=== PATIENT | female | born 1955 | race Caucasian/White ===

== ENCOUNTER 2022-09-14 13:35 | Inpatient (IN) | payer OTHER, MEDICARE, SELFPAY ==
[2022-09-14 13:36] VITALS: BP 116/54; PULSE 72; RESP 16; TEMP 36.3; O2SAT 100; BMI 35.4
--- NOTE | 2022-09-14 13:37 | RAD_ITS ---
STUDY: X-RAY - PELVIS AND LEFT HIP REASON FOR EXAM: Female, 67 years old. Injury/Pain TECHNIQUE: Frontal and lateral views of the pelvis and hip. COMPARISON: None. FINDINGS: There is a normal bowel gas pattern. Normal visualized soft tissue structures. Normal bilateral iliac wings, sacroiliac joints and visualized sacrum. Normal bilateral superior and inferior pubic rami. Normal pubic symphysis. Normal bilateral ischial tuberosities. Normal visualized femoral head. There is acute intertrochanteric fracture of the left proximal femur with displacement of 0.4 cm. Normal acetabulum. Normal hip joint. RAD/HIP, UNI W/ Pelvis 2-3 Views IMPRESSION: Left femoral neck fracture. Electronically Signed: Hammad Tilley MD at 14:23 EDT ,
--- NOTE | 2022-09-14 13:38 | ED.VIS.LOWEX ---
HPI History of Present Illness Chief Complaint: Lower Extremity Injury Detail of Chief Complaint: Left hip pain after fall Informant: patient and EMS Occured/Mechanism Mechanism/Context: Yes injury and Yes fall Comment: Patient fell off of wagon. She informed the paramedics she believes she dislocated her hip Onset/Context/Timing Onset: Hours (20 minutes prior to arrival) Context: Sudden Onset Timing: Continuous Quality of Pain: Dull and Aching Location: Left hip Current Severity: Mild Maximum Severity: Severe Worsened by: Any event Relieved by: Minimal if patient remains still Narrative Narrative: Patient is a 67-year-old woman with history of psychiatric disorder on no antithrombotic or anticoagulant who fell off of a wagon. She was found with her left hip in flexion and slightly internally rotated. She has no prior history of hip problems or hip surgery. She denies paresthesia, anesthesia or motor weakness. She denies head trauma. She denies loss of conscious. She denies neck or back pain. She denies pain to her upper or lower extremities. Patient has significant reaction to morphine and codeine. Patient has not had anything to eat since this morning. She had something to drink approximately 1 hour ago. Tetanus Immunization: >10 years Prior similar symptoms: No Recent Illness/Hospitalization: No PFSH PFSH Medical History Arthritis Bipolar 1 disorder GERD (gastroesophageal reflux disease) Insomnia Home Medications alprazolam 0.5 mg tablet 0.5 mg PO DAILY PRN Anxiety 09/14/22 [History Last Taken Unknown] amoxicillin 500 mg capsule 500 mg PO TID Check with primary doctor 09/14/22 [History Last Taken Unknown] bupropion HCl 150 mg 24 hr tablet, extended release 150 mg PO DAILY 09/14/22 [History Last Taken Unknown] eszopiclone 3 mg tablet 3 mg PO QHS PRN Insomnia 09/14/22 [History Last Taken Unknown] famotidine 20 mg tablet 20 mg PO DAILY 09/14/22 [History Last Taken Unknown] meloxicam 15 mg tablet 15 mg PO DAILY 09/14/22 [History Last Taken Unknown] olanzapine 10 mg tablet 10 mg PO DAILY 09/14/22 [History Last Taken Unknown] sertraline 100 mg tablet 200 mg PO DAILY 09/14/22 [History Last Taken Unknown] Allergy/AdvReac Type Severity Reaction Status Date / Time ciprofloxacin [From Cipro] Allergy Hives Verified 09/14/22 13:40 hydrocodone [From [place]] Allergy Hives Verified 09/14/22 13:40 morphine Allergy Hives Verified 09/14/22 13:40 Family History (Updated 09/14/22 @ 15:[address] Nidhi Camacho DO) Mother Renal cell carcinoma Father Small cell lung cancer Other Diabetes Heart disease Hypertension Surgical History (Updated 09/14/22 @ 15:[address] Nidhi Camacho DO) H/O cardiac radiofrequency ablation History of dental surgery Social History (Updated 09/14/22 @ 15:[address] 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 Denies dental trauma. ; Denies ear pain or sore throat Cardiovascular Cardiovascular: Denies chest pain or palpitations Respiratory/Chest Respiratory/Chest: Denies cough, dyspnea or dyspnea on exertion Gastrointestinal Gastrointestinal: Denies abdominal pain, nausea or vomiting Genitourinary Genitourinary ED: Denies dysuria, hematuria or urinary frequency Musculoskeletal Musculoskeletal: Reports other Details: Left hip pain ; Denies arthralgias, back pain, myalgias or neck pain Integumentary Denies rash Neurologic Neurologic: Denies paresthesias or weakness Hematologic/Lymphatic Hematologic/Lymphatic: Denies easy bleeding or easy bruising EXAM Physical Exam Const Vital Signs: 09/14/22 13:36 Temperature 97.3 F L Temperature Source Temporal Pulse Rate 72 Respiratory Rate 16 Blood Pressure 116/54 L Blood Pressure Mean 74 Pulse Ox 100 Oxygen Delivery Method Room Air Positive well nourished, well developed and obese Constitutional Narrative: Patient appears uncomfortable but not in obvious distress. General Appearance ED: well developed Nutritional Appearance: obese HEENT Reports moist mucous membranes normocephalic and atraumatic Eyes PERRL Eyes Narrative: Extract muscle intact. Sclera is anicteric. There is no subconjunctival hemorrhage noted. Neck full ROM and supple Resp normal respiratory effort, no retractions and clear to auscultation bilaterally Cardio regular rate, regular rhythm, S1 normal heart sound, S2 normal heart sound and no murmurs GI non-tender, non-distended and no masses Auscultation: hypoactive bowel sounds Palpation: soft Back/Spine no CVA tenderness Extremity Negative for normal to inspection or full ROM Extremity Narrative: Patient hip is in flexion and left lower extremity is internally rotated. General Extremety ED: Yes weight-bearing difficulty; Negative for cyanosis or edema General Extremity: weight-bearing difficulty; Negative for cyanosis or edema Neuro oriented x3, CN's II-XII intact bilaterally and moves all extremities Neuro Narrative: Patient is able to wiggle her toes and plantar and dorsiflex at the ankle. DP pulses palpable. There is no tenderness of the toes, foot, ankle or knee on the left side. Sensorium / Orientation: alert Motor Exam: strength 5/5 throughout Skin no wounds Lesions: no lesions Rashes: no rashes MDM MDM MDM Narrative Medical decision making narrative: Clinically patient has a left hip dislocation. X-ray was obtained to evaluate for fracture dislocation versus dislocation. Based on her allergies she was medicated with fentanyl IV push. Patient was made NPO. X-ray was ordered. Review of prior records indicates patient has no contraindication to sedation and no history of cardiac disease or pulmonary disease. History & Record Review Additional record(s) reviewed:: Prior outpatient record Radiography Chest X-Ray - ED: Read by ED Physician (Three-view x-ray of the left hip reveals a nondisplaced femoral neck fracture. The trabeculae. I believe this is a Pierce type III. Dr. Oropeza who is on-call for orthopedics will be in to see patient.) Diagnostic Testing: Clinical Impression(s) from Imaging Studies Hip/Pelvis X-Ray 09/14/22 13:37 IMPRESSION: Left femoral neck fracture. Electronically Signed: Hammad Tilley MD at 14:23 EDT , At the time of disposition and admission for the chest x-ray that was ordered has not been performed. This will need to be followed by the hospitalist and or orthopedist. Rhythm Strip Rhythm Strip: Sinus Rhythm (88) Rate: 75 Ectopy: None EKG Initial EKG: Attestation: I personally reviewed and interpreted this EKG as follows: Interpretation: Sinus Rhythm (Rate is 82. GA interval is under 50 ms. Cures duration 80 ms. QT duration 386 ms. [place] is normal. Pewter is reading artifact as nonspecific ST-T wave abnormality.) Discharge Plan Dx/Rx/DC Orders Clinical Impression: Fracture of femoral neck, left, closed Disposition Disposition: Acute Care Hospital [facility]
[2022-09-14] MEDS: fentaNYL 100 MCG/2 ML Ampul 50 MCG IV (13:49)
--- NOTE | 2022-09-14 14:43 | EKG12_ITS ---
Test Reason : PRE OP Blood Pressure : / mmHG Vent. Rate : 082 BPM Atrial Rate : 082 BPM P-R Int : 150 ms QRS Dur : 080 ms QT Int : 386 ms P-R-T Axes : 064 -12 077 degrees QTc Int : 450 ms Normal sinus rhythm Nonspecific ST and T wave abnormality Abnormal ECG Confirmed by VINNIE SEGAL, CALI ([id number]), scientific publications editor CUAUHTEMOC NAVARRO ([id number]) on 09/17/2022 10:28:36 AM Referred By: Confirmed By:CALI BIRMINGHAM MD
--- NOTE | 2022-09-14 14:56 | PCM.HP.STD ---
HPI - General General Date of Admission: 09/14/22 Date of Service: 09/14/22 Chief Complaint: Left hip pain status post fall HPI Narrative YAMILET LOPEZ, is a 67 F who presented to the emergency department at [facility] on 09/14/2022. Patient resides in [place] and was here locally for festival. She likes to knit and they were selling yarn. She was stepping out of one of the trailers and the steps were unlevel and she fell having immediate left hip pain and deformity following. She was brought to the emergency department where she was found to have a left femoral neck fracture. Her past medical history is fairly unremarkable. She did recently have dental surgery for which she is taking antibiotics. Labs are currently pending. Preop EKG and chest x-rays are pending. The emergency department contacted Dr. Hanley and he is on his way to evaluate her further and decide on a surgical plan. She will be admitted to [facility] for ongoing care. [facility] Medical History Arthritis Bipolar 1 disorder GERD (gastroesophageal reflux disease) Insomnia Home Medications alprazolam 0.5 mg tablet 0.5 mg PO DAILY PRN Anxiety 09/14/22 [History Last Taken Unknown] bupropion HCl 150 mg 24 hr tablet, extended release 150 mg PO DAILY 09/14/22 [History Last Taken Unknown] eszopiclone 3 mg tablet 3 mg PO QHS PRN Insomnia 09/14/22 [History Last Taken Unknown] famotidine 20 mg tablet 20 mg PO DAILY 09/14/22 [History Last Taken Unknown] meloxicam 15 mg tablet 15 mg PO DAILY 09/14/22 [History Last Taken Unknown] olanzapine 10 mg tablet 10 mg PO DAILY 09/14/22 [History Last Taken Unknown] sertraline 100 mg tablet 200 mg PO DAILY 09/14/22 [History Last Taken Unknown] Allergy/AdvReac Type Severity Reaction Status Date / Time ciprofloxacin [From Cipro] Allergy Hives Verified 09/14/22 13:40 hydrocodone [From [place]] Allergy Hives Verified 09/14/22 13:40 morphine Allergy Hives Verified 09/14/22 13:40 Family History (Updated 09/14/22 @ 15:[address] Nidhi Camacho DO) Mother Renal cell carcinoma Father Small cell lung cancer Other Diabetes Heart disease Hypertension Surgical History (Updated 09/14/22 @ 15:[address] Nidhi Camacho DO) H/O cardiac radiofrequency ablation History of dental surgery Social History (Updated 09/14/22 @ 15:[address] 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 Smoking Status: Never smoker alcohol intake: current alcohol intake frequency: holidays/special occasions only substance use type: does not use ROS Constitutional Constitutional: Denies anorexia, change in weight, chills, fatigue, fever(s), malaise, night sweats, weakness or other Eyes Eyes: Denies blurry vision, change in eye color, change in vision, discharge from eye(s), double vision, erythema, eye pain, loss of vision or other ENT HEENT: Denies abnormal hearing, dysphagia, ear pain, epistaxis, headache(s), hearing loss, nasal congestion, nasal discharge, post nasal drip, sinus pressure, sore throat or other Cardiovascular Cardiovascular: Denies chest pain, claudication, dyspnea on exertion, edema, lightheadedness, orthopnea, palpitations, paroxysmal nocturnal dyspnea, rapid heart rate, syncope or other Respiratory/Chest Respiratory/Chest: Denies cough, dyspnea, excessive phlegm production, hemoptysis, productive cough, shortness of breath at rest, shortness of breath with exertion, wheezing or other Gastrointestinal Gastrointestinal: Denies abdominal pain, coffee ground emesis, constipation, diarrhea, dyspepsia, hematemesis, hematochezia, loose stools, melena, nausea, vomiting or other Genitourinary Genitourinary: Denies burning urination, difficulty urinating, dysuria, hematuria, nocturia, urinary frequency, urinary hesitancy, urinary incontinence, urinary urgency or other Musculoskeletal Musculoskeletal: Reports arthralgias, joint pain, joint stiffness, joint swelling and other Details: Inability to move left leg due to pain ; Denies back pain, myalgias or neck pain Neurologic Neurologic: Denies abnormal gait, abnormal speech, confusion, disequilibrium, dizziness, focal weakness, headache(s), numbness, paresthesias, seizure-like activity, seizures, syncope, tingling, tremor(s) or other Psychiatric Psychiatric: Reports other Details: History of bipolar disorder Hematologic/Lymphatic Hematologic/Lymphatic: Denies anemia, easy bleeding, easy bruising, lymphadenopathy or other Allergic/Immunologic Allergic/Immunologic: Denies rhinitis, hives, eczemia, asthma or other Vital Signs Vital Signs Vital Signs: 09/14/22 13:36 Temperature 97.3 F L Temperature Source Temporal Pulse Rate 72 Respiratory Rate 16 Blood Pressure 116/54 L Blood Pressure Mean 74 Pulse Ox 100 Oxygen Delivery Method Room Air Weight Weight: 99.5 kg Body Mass Index (BMI) 35.4 Physical Exam Const alert, oriented x3 and well nourished Constitutional Narrative: Obese, very pleasant, upper middle-aged, white female, lying in bed, appears uncomfortable due to pain in her leg, nontoxic appearing, at bedside General Appearance: cooperative HEENT normocephalic, head/scalp atraumatic, hearing grossly normal bilaterally and moist oral mucous membranes HEENT Narrative: Mandible with notable surgical changes and sutures in place with no drainage or signs of infection Resp normal respiratory effort, no retractions, no use of accessory muscles and clear to auscultation bilaterally Auscultation: Negative for rales, rhonchi or wheezes Cardio regular rate, regular rhythm, S1 normal heart sound, S2 normal heart sound, no murmurs, no rub, no gallops and no clicks GI normal to inspection, nondistended, normoactive bowel sounds, soft to palpation and non-tender Extremity no clubbing, cyanosis or edema Extremity Narrative: Left lower extremity is propped up slightly at the ankle and patient is guarding significantly due to pain, pedal pulses are 2+ Neuro oriented x3, CN's II-XII intact bilaterally and no focal motor deficits Neuro Narrative: Decreased movement left lower extremity secondary to pain in the left hip but no focal deficits noted Speech: speech normal Psych affect normal Psych Narrative: Very pleasant, appropriately interactive Results Rhythm Strip Rhythm Strip: Sinus Rhythm (88) Ectopy: None Radiology Impression Hip/Pelvis X-Ray 09/14/22 13:37 IMPRESSION: Left femoral neck fracture. Electronically Signed: Hammad Tilley MD at 14:23 EDT , Assessment & Plan Assessment/Plan (1) Fracture of femoral neck, left: PLAN: Plan Left femoral neck fracture -Orthopedic surgery consulted and coming into evaluate patient -Cardiac clearance pending with EKG and chest x-ray pending -Patient should overall be low risk for surgery as she has no cardiac history other than history of A-fib status post ablation and no history of pulmonary disease -Admit to medical floor -Scheduled Tylenol 1000 mg every 8 -As needed muscle relaxants with tizanidine every 8 -As needed oxycodone -Patient states she has taken this previously without any reaction -Benadryl ordered if she develops itching or hives -Bedrest until surgical repair is performed -PT/OT consultation after surgical intervention Recent dental surgery -We will continue home antibiotics as previously prescribed -Recommend previously scheduled outpatient follow-up History of GERD -Continue home medication once verified History of atrial fibrillation -Remote -Underwent cardiac ablation at least 10 years ago with no cardiac issues since that point time -EKG is pending however on auscultation rate is within normal limits and regular Bipolar disorder -Continue home medications Obesity -BMI 35.4 -Complicates treatment, prognosis, outcomes Recommend weight loss DVT prophylaxis -Lovenox subcu 40 mill grams daily -SCDs for suspected interruption and Lovenox therapy perioperatively CODE STATUS Full code Charges/Coding Visit Charges Inpatient E&M: 86120 Init Hosp L2
--- NOTE | 2022-09-14 15:26 | CON.PCM.OR_ITS ---
HPI Consult Data Date of Consult: 09/14/22 HPI Narrative HPI Narrative: YAMILET LOPEZ, is a 67 F who presents left hip # NOF. [place] Tri[place] stairs, no SOB or CP. no prior hip pain. no other injuries or pain. no head injury or LOC. [facility] Medical History Arthritis Bipolar 1 disorder GERD (gastroesophageal reflux disease) Insomnia Home Medications alprazolam 0.5 mg tablet 0.5 mg PO DAILY PRN Anxiety 09/14/22 [History Last Taken Unknown] bupropion HCl 150 mg 24 hr tablet, extended release 150 mg PO DAILY 09/14/22 [History Last Taken Unknown] eszopiclone 3 mg tablet 3 mg PO QHS PRN Insomnia 09/14/22 [History Last Taken Unknown] famotidine 20 mg tablet 20 mg PO DAILY 09/14/22 [History Last Taken Unknown] meloxicam 15 mg tablet 15 mg PO DAILY 09/14/22 [History Last Taken Unknown] olanzapine 10 mg tablet 10 mg PO DAILY 09/14/22 [History Last Taken Unknown] sertraline 100 mg tablet 200 mg PO DAILY 09/14/22 [History Last Taken Unknown] Allergy/AdvReac Type Severity Reaction Status Date / Time ciprofloxacin [From Cipro] Allergy Hives Verified 09/14/22 13:40 hydrocodone [From [place]] Allergy Hives Verified 09/14/22 13:40 morphine Allergy Hives Verified 09/14/22 13:40 Family History (Updated 09/14/22 @ 15:[address] Nidhi Camacho DO) Mother Renal cell carcinoma Father Small cell lung cancer Other Diabetes Heart disease Hypertension Surgical History (Updated 09/14/22 @ 15:[address] Nidhi Camacho DO) H/O cardiac radiofrequency ablation History of dental surgery Social History (Updated 09/14/22 @ 15:[address] 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 Smoking Status: Never smoker alcohol intake: current alcohol intake frequency: holidays/special occasions only substance use type: does not use Vital Signs Vital Signs Vital Signs: 09/14/22 13:36 Temperature 97.3 F L Temperature Source Temporal Pulse Rate 72 Respiratory Rate 16 Blood Pressure 116/54 L Blood Pressure Mean 74 Pulse Ox 100 Oxygen Delivery Method Room Air Weight Weight: 219 lb 5.759 oz Body Mass Index (BMI) 35.4 Physical Exam Const alert, oriented x3, no apparent distress and well nourished General Appearance: cooperative HEENT normocephalic Resp normal respiratory effort Effort and Inspection: able to speak in complete sentences Cardio regular rate Extremity normal capillary refill and no calf tenderness Extremity Narrative: Left LE closed NVI. normal sensation to dorsum and plantar foot, strong DP pulse, foot warm well perfused, wiggles toes and ankle, no pain at knee, left hip propped on blankets. Lab / Micro Data Labs: Laboratory Results - last 24 hr 09/14/22 14:55: Blood Type Cancelled, Antibody Screen Cancelled Rhythm Strip Rhythm Strip: Sinus Rhythm (88) Rate: 75 Ectopy: None Radiology Impression Hip/Pelvis X-Ray 09/14/22 13:37 IMPRESSION: Left femoral neck fracture. Electronically Signed: Hammad Tilley MD at 14:23 EDT , displaced nof garden 3. no OA. Assessment & Plan Assessment/Plan (1) Fracture of femoral neck, left: PLAN: 67 F with a left displaced femoral neck fracture. Generally indicated for either hemiarthroplasty or total hip my preference for hemiarthroplasty. Different approaches possible for this as well as cemented versus uncemented. Generally my preference here for DA approach and cemented but controversial. I discussed the pros and cons risks and benefits of nonoperative versus operative means of treating this. Patient wishes to proceed with operative management. High risk of nonoperative treatment with debility bedrest and high risk of thromboembolism complications. Marked left lower extremity and consent obtained for the surgery left hip hemiarthroplasty as well as possible need for blood products. Patient will be GENEVA for now n.p.o. at midnight admitted under the hospitalist service and cleared for likely tomorrow morning surgery. House sup ervisor as well as anesthesia aware. Pros and cons risks and benefits were discussed with the patient including but not limited to infection, pain, stiffness, bleeding, damage to surrounding structures, neurovascular injury, recurrence or retear, failure or wear of hardware or fixation, instability, fracture, deep vein thrombosis and pulmonary embolism, anesthetic risks, , patient dissatisfaction, need for further surgery and other risks. Patient understood and wished to proceed with surgery, and signed the informed consent documentation.
[2022-09-14] MEDS: HYDROmorphone 0.5 MG/0.5 ML SYRINGE IV (15:33)
[2022-09-14] MEDS: DiphenhydrAMINE 50 MG/ML Syringe 25 MG IV (15:34)
[2022-09-14 15:37] VITALS: BP 117/58; PULSE 85; RESP 16; TEMP 36.6; O2SAT 99
[2022-09-14 15:53] LABS: International Normalized Ratio 1.1; Prothrombin Time (Protime)PT. 14.2 SECONDS (11.7-14.9)
[2022-09-14 15:54] LABS: Partial Thromboplast Time 28.2 Seconds (24.1-36.2)
--- NOTE | 2022-09-14 16:05 | RAD_ITS ---
STUDY: XR Chest 1 View 09/14/2022 4:05 PM REASON FOR EXAM: Female, 67 years old. Preop COMPARISON: None TECHNIQUE: XR Chest 1 View FINDINGS: There is no demonstrated pleural abnormality. Normal heart size. Normal mediastinum. Normal minda. Prominent appearing increased interstitial lung markings. Normal visualized pulmonary arteries. There is atherosclerotic calcification of the aortic arch with tortuosity. There are diffuse degenerative changes of the visualized thoracic spine. There is degenerative osteoarthritis of the bilateral shoulders. There is no demonstrated abnormality of the visualized soft tissue structures of the upper abdomen. RAD/Chest 1 View (Portable) IMPRESSION: There are no acute findings. Electronically Signed: Vinod Arguelles MD at 17:18 EDT ,
[2022-09-14 16:16] LABS: ALB/GLOB Ratio 0.8 RATIO (0.9-2.4); AST(SGOT) 20 U/L (15-37); Alanine Aminotransfer ALT/SGPT 16 U/L (13-56); Albumin, Serum 3.2 g/dL (3.2-5.0); Alkaline Phosphatase 106 U/L (45-117); Anion Gap 4 (5-15); BUN 16 mg/dL (7-18); BUN/Creat Ratio 14.7 RATIO (10-20); Calcium,Total 8.8 mg/dL (8.5-10.1); Chloride 108 mmol/L (98-107); Creatinine, Serum 1.09 mg/dL (0.55-1.02); EST Glomerular Filtration Rate 53 mL/min (>60); Est Glom Filt Rate - Afr Amer 65 mL/min (>60); Estimated Creatinine Clearance 47.53 ml/min; Globulin 4.1 g/dL (2.2-4.2); Glucose 115 mg/dL (74-106); Potassium 4.6 mmol/L (3.5-5.1); Protein, Total 7.3 g/dL (6.4-8.2); Sodium Level 140 mmol/L (136-145)
[2022-09-14 17:27] VITALS: BMI 35.2
[2022-09-14 17:32] VITALS: BP 126/93; PULSE 89; RESP 18; TEMP 36.6; O2SAT 95
[2022-09-14] MEDS: oxyCODONE 5 MG Tablet PO ×2 (17:55→21:25)
[2022-09-14 20:40] VITALS: O2SAT 98
[2022-09-14] MEDS: Acetaminophen 500 MG Tablet 1000 MG PO (21:23)
[2022-09-14] MEDS: Ondansetron 4 MG/2 ML Vial IV (21:23)
[2022-09-14] MEDS: MELATONIN 3 MG TABLET PO (21:25)
[2022-09-14] MEDS: 0.9% Saline Lock 10 ML Syringe IV (21:25)
[2022-09-14 21:33] VITALS: BP 129/60; PULSE 86; RESP 18; TEMP 36.8; O2SAT 92
[2022-09-15] VITALS (13 sets, daily range): BP systolic 101–129; BP diastolic 47–74; PULSE 66–100; RESP 12–18; TEMP 36.2–37.1; O2SAT 90–99; BMI 35.2
[2022-09-15 06:28] LABS: Absolute Lymphocyte Count 1.66 X10^3/uL (0.83-4.51); Absolute Neutrophil Count 3.5 X10^3/uL (2.0-7.7); Basophil# 0.04 X10^3/uL; Basophil% 0.7 % (0-1); Eosinophil# 0.21 X10^3/uL; Eosinophils% 3.6 % (0-5); Hematocrit 29.1 % (37-47); Hemoglobin 8.1 g/dL (12.0-15.0); Lymphocyte # 1.66 X10^3/ul (0.83-4.51); Lymphocyte % 28.6 % (19-41); Mean Corp Hgb Conc 27.8 g/dL (32-36); Mean Corpuscular Hgb 21.7 pg (27.0-32.0); Mean Platelet Vol. 9.9 fl (6.2-12.0); Monocyte% 6.9 % (0-10); NRBC Flagged by Analyzer 0 % (0-5); Neutrophil # 3.48 X10^3/uL (2.7-7.7); Neutrophil % 59.9 % (47-70); Platelet Count 264 K/mm3 (150-450); RBC Distribution Width CV 18.2 % (11.6-14.6); RBC Distribution Width SD 51.2 fl (35.1-43.9); Red Blood Count 3.73 M/mm3 (4.2-5.4); White Blood Count 5.8 K/mm3 (4.4-11.0)
[2022-09-15 07:16] LABS: BUN 16 mg/dL (7-18); Calcium,Total 8.4 mg/dL (8.5-10.1); Creatinine, Serum 1.07 mg/dL (0.55-1.02); EST Glomerular Filtration Rate 55 mL/min (>60); Est Glom Filt Rate - Afr Amer 66 mL/min (>60); Estimated Creatinine Clearance 44.66 ml/min; Glucose 106 mg/dL (74-106); Phosphorus 3.3 mg/dL (2.5-4.9); Sodium Level 138 mmol/L (136-145)
[2022-09-15 07:17] LABS: Anion Gap 6 (5-15); Chloride 106 mmol/L (98-107)
[2022-09-15 07:28] LABS: Ferritin 8 ng/mL (8-252); Iron 38 ug/dL (50-170); Iron Binding Capacity,Total 343 ug/dL (250-450); PERCENT IRON SATURATION 11.1 % (15.0-55.0)
--- NOTE | 2022-09-15 07:41 | RAD_ITS ---
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 TECHNIQUE: 2 spot images. COMPARISON: XR 09/14/2022. FINDINGS: OSSEOUS STRUCTURES: Placement of left hip arthroplasty. FLUOROSCOPY TIME/RADIATION DOSE: Information not provided. RAD/Hip Min 2 Views (Portable) IMPRESSION: Image guidance for left hip arthroplasty. Please refer to operative note. Electronically Signed: Virgen Mares MD at 13:02 EDT ,
--- NOTE | 2022-09-15 07:41 | NURSING ---
Er called as missing signed consent for surgery pt and Dr. Hanley states signed while in ER, they tubed the consent form, sent to OR.
[2022-09-15] MEDS: Cefazolin 2 GM in 0.9% Normal Saline 100 ML IV (07:48)
--- NOTE | 2022-09-15 07:49 | PCM.PN.ORT ---
Subjective Subjective OK to proceed, left hip gege arthroplasty Objective Data Objective Data Vital Signs: Vital Signs Temp Pulse Resp BP Pulse Ox O2 Del Method 98.2 F 66 18 113/61 92 Room Air 09/15/22 03:33 09/15/22 03:33 09/15/22 03:33 09/15/22 03:33 09/15/22 03:33 09/15/22 03:33 Oxygen Delivery Method Room Air Weight: 205 lb 7.533 oz Body Mass Index (BMI) 35.2 Intake & Output: Intake and Output for Last 24 Hours 09/13/22 09/14/22 09/15/22 23:59 23:59 23:59 Intake Total 240 / 640 400 / 400 Output Total 450 / 450 Balance 240 / 640 -50 / -50 Lab / Micro Data Result Diagrams: 09/15/22 05:55 09/15/22 05:55 Labs: Laboratory Results - last 24 hr 09/14/22 14:50: Sodium 140, Potassium 4.6, Chloride 108 H, Carbon Dioxide 28.0, Anion Gap 4 L, BUN 16, Creatinine 1.09 H, Estim Creat Clear Calc 47.53, Est GFR (MDRD) Af Amer 65, Est GFR (MDRD) Non-Af 53 L, BUN/Creatinine Ratio 14.7, Glucose 115 H, Calcium 8.8, Total Bilirubin 0.20, AST 20, ALT 16, Alkaline Phosphatase 106, Total Protein 7.3, Albumin 3.2, Globulin 4.1, Albumin/Globulin Ratio 0.8 L 09/14/22 14:55: Blood Type Cancelled, Antibody Screen Cancelled 09/14/22 15:25: PT 14.2, INR 1.1, APTT 28.2 09/14/22 15:25: Blood Type A POSITIVE, Antibody Screen NEGATIVE 09/15/22 05:55: WBC 5.8, RBC 3.73 L, Hgb 8.1 L, Hct 29.1 L, MCV 78.0 L, MCH 21.7 L, MCHC 27.8 L, RDW Std Deviation 51.2 H, RDW Coeff of Nurys 18.2 H, Plt Count 264, MPV 9.9, Immature Gran % (Auto) 0.300, Neut % (Auto) 59.9, Lymph % (Auto) 28.6, [place] % (Auto) 6.9, Eos % (Auto) 3.6, Baso % (Auto) 0.7, Absolute Neuts (auto) 3.5, Absolute Lymphs (auto) 1.66, Nucleated RBC % 0 09/15/22 05:55: Sodium 138, Potassium 4.0, Chloride 106, Carbon Dioxide 26.0, Anion Gap 6, BUN 16, Creatinine 1.07 H, Estim Creat Clear Calc 44.66, Est GFR (MDRD) Af Amer 66, Est GFR (MDRD) Non-Af 55 L, BUN/Creatinine Ratio 15.0, Glucose 106, Calcium 8.4 L, Phosphorus 3.3, Magnesium 2.0, TSH 8.90 H 09/15/22 05:55: Iron 38 L, TIBC 343, Iron Saturation 11.1 L, Ferritin 8 Radiography Diagnostic Testing: Radiology Impression Hip/Pelvis X-Ray 09/14/22 13:37 IMPRESSION: Left femoral neck fracture. Electronically Signed: Hammad Tilley MD at 14:23 EDT , Chest X-Ray 09/14/22 16:05 IMPRESSION: There are no acute findings. Electronically Signed: Vinod Arguelles MD at 17:18 EDT , Rhythm Strip Rhythm Strip: Sinus Rhythm (88) Rate: 75 Ectopy: None Assessment & Plan Assessment/Plan (1) Fracture of femoral neck, left: PLAN: 67 F plan for left hip gege arthroplasty, no further questions. Dr. May to proceed with spinal.
--- NOTE | 2022-09-15 08:08 | NURSING ---
pt off unit for surgery
--- NOTE | 2022-09-15 08:20 | FEM_PTH ---
PATIENT: YAMILET LOPEZ LOC: MS3 U#:[id number] AGE/SX: 67/F ROOM: MD310 RE09/14/[address]: Dr. Mikie Marcos MD : 1955 BED: 1 DIS: 09/18/2022 SPEC #: [id number] RECD: 09/17/22 08:36 STATUS: CAR REQ #: [id number] EDITH: 09/15/22 08:[address]: Michael Hanley DEPT: SURGICAL PATHOLOGY RECD BY: Emily Gamez ENTERED: 09/17/22 09:12 SP TYPE: FEM HEAD OTHR DR: DO Dr. Michael Mullen MD No Primary Care Phys Tissues: Femoral region, NOS Procedures: Decalcification bone/plaque Surgery Specimen Level V Comments: @ Ordering doctor for DEC edited from to @ by TYLOR at 09/17/22 1314 @ Ordering doctor for SUV edited from to @ by TYLOR at 09/17/22 1314 @ Submitting doctor edited from to @ by TYLOR at 09/17/22 1314 HEADER OPERATION: Left hip hemiarthroplasty PRE-OP DIAGNOSIS: Fracture of left femoral neck TISSUE SUBMITTED: Left hip bone and tissue MICROSCOPIC DIAGNOSIS Bone and tissue of left hip, total hip resection: Consistent with organizing fracture callus. SHAILESH:olga 09/20/2022 MICROSCOPIC DESCRIPTION Slides are reviewed. GROSS DESCRIPTION Received is one container labeled with the patient's name and designated left hip bone and tissue. The specimen consists of a steiner femoral head measuring 4.5 x 4.5 x 2.5 cm. A portion of femoral neck measures 3.0 cm in length. The articular surface is smooth and with knife noel. Resection margin is irregular and hemorrhagic. Also present in the specimen container are multiple detached pieces of bone measuring in aggregate 6.0 x 4.5 x 2.0 cm. No soft tissue is identified. Food General Manager sections are submitted in three cassettes after decalcification as follows: 1 & 2 - detached pieces of tissue, 3 - femoral head. / SHENG:olga 09/17/2022 TC:5 CPT: 88133, 00639
[2022-09-15] MEDS: Bupivacaine 0.25% 30 ML Vial OPERA.SITE (11:01)
--- NOTE | 2022-09-15 11:09 | PCM.OPRPT ---
Problems Associated Problem List Diagnoses (1) Fracture of femoral neck, left: Report of Operation Date of Procedure: 09/15/22 Pre-Operative Diagnosis: L hip femoral neck fracture Post-Operative Diagnosis: same Surgery/Procedure Performed:: Left hip cemented hemiarthroplasty DA approach Surgeon: Michael Hanley Type of Anesthesia: General, Local and Spinal Anesthesiologist: Yoel May Estimated Blood Loss (mL): 100 Description of Procedure: Patient brought to room theater. Placed supine on the table. Spinal anesthesia induced eventually converted to general anesthetic. Bump under the left hip. All bony prominences padded. Left anterior aspect of the hip prepped and draped with chlorhexidine-based prep solution lying over 3 minutes drying time prior to draping. 2 g IV Ancef ministered prior to start of the case. Preoperative timeout performed confirming site patient surgery. Began by making a 10 cm incision directly anterior to the left hip 2 cm distal and 2 cm lateral to the ASIS. Carried dissection down through skin and subcutaneous tissue achieved meticulous hemostasis. Incised the fascia overlying the tensor fascia zach just lateral to the interval. Then used blunt dissection to sweep the muscle belly laterally. Incised the subsheath of the tensor fascia zach to protect the lateral femoral cutaneous nerve. Cauterize crossing vessels circumflex of the femoral artery. Developed the interval between the reflected head of the rectus as well as the hip abductors gluteus medius. Placed retractors at the neck. Made a T-shaped capsulotomy eventually that I had to convert to a capsulectomy to gain better releases and an approach to the hip. Used the corkscrew device to remove the head. Head sized to 45 mm. Dissected down to the medial aspect of the neck to the lesser trochanter. Fracture was low just above the lesser trochanter so I used rongeurs to clean up the neck cut. Used a box osteotome to lateralize. Hip was fully extended use of bone hook as well as the elevating instruments. Sequentially broached up to a size 4, a size 5 was slightly too big distally. Trialed and took radiographs to ensure appropriate length and stability in internal and external rotation as well as extension and flexion normal shuck test normal leg lengths comparing side to side at the knees. Prepared the canal with brushes and suction devices as well as Irrisept irrigation solution. Suction mixed and prepared using third-generation preparation techniques. Distal cement restrictor placed at an appropriate level as well as the centralizer at the femoral component which I selected a size 4 Accolade Kieran. Cement was allowed to set slightly, canal pressurized with cement,m patient stable throughout, component inserted in appropriate version. Then trialed once the cement was set using size 45 mm head 0 offset slightly too short and then +4 mm offset was appropriate again using intraoperative radiographs compared side to side. Trials were removed and final component impacted into place after the trunnion thoroughly cleaned and any cement removed as well as the acetabulum thoroughly irrigated. Hip stable and reduced final pictures taken and saved onto the system. Wound thoroughly irrigated interval closed with #1 Vicryl suture followed by subcutaneous tissue 2-0 Vicryl and skin with 3-0 Monocryl. 10 cc 0.25% percent bupivacaine instilled in around soft tissues followed by cleaning the skin with wet dry dressing Steri-Strips and silver Mepilex border dressing. Drapes removed patient woken up from under general anesthetic transferred off the operating table and taken to postanesthetic care unit in stable condition. All sponge needle Mr. Counts were correct no complications. Plan to the patient made under the hospitalist service Xarelto 10 mg p.o. once daily starting postoperative day 1 and a precaution 6 weeks weightbearing as tolerated. Grafts/Implants Used: kieran accolade, size 4, 45mm head, +4 offset, Complications none Admit VTE Documentation VTE Present on Admission: No VTE Mechan Device Prophylaxis: SCD's VTE Pharm Prophylaxis ordered?: Yes Procedures Musculoskeletal 20xxx-29xxx: Other Procedure See Report
--- NOTE | 2022-09-15 12:56 | PCM.PN.HOSP ---
Reason for Visit Reason for Visit: Mechanical fall/left hip pain Subjective Subjective Surgery done this morning. Patient seen postoperatively. Patient reports she is feeling crappy right now. Complains of being cold. No significant pain. Objective Data Objective Data Vital Signs: Vital Signs Temp Pulse Resp BP Pulse Ox O2 Del Method O2 Flow Rate 97.8 F 85 18 124/69 H 93 Nasal Cannula 2 09/15/22 12:15 09/15/22 12:15 09/15/22 12:15 09/15/22 12:15 09/15/22 12:15 09/15/22 12:15 09/15/22 12:15 Oxygen Flow Rate (L/min) 2 Oxygen Delivery Method Nasal Cannula Weight: 93.2 kg Body Mass Index (BMI) 35.2 Intake & Output: Intake and Output for Last 24 Hours 09/13/22 09/14/22 09/15/22 23:59 23:59 23:59 Intake Total 240 / 640 510 / 510 Output Total 800 / 800 Balance 240 / 640 -290 / -290 Lab / Micro Data Result Diagrams: 09/15/22 05:55 09/15/22 05:55 Labs: Laboratory Results - last 24 hr 09/14/22 14:50: Sodium 140, Potassium 4.6, Chloride 108 H, Carbon Dioxide 28.0, Anion Gap 4 L, BUN 16, Creatinine 1.09 H, Estim Creat Clear Calc 47.53, Est GFR (MDRD) Af Amer 65, Est GFR (MDRD) Non-Af 53 L, BUN/Creatinine Ratio 14.7, Glucose 115 H, Calcium 8.8, Total Bilirubin 0.20, AST 20, ALT 16, Alkaline Phosphatase 106, Total Protein 7.3, Albumin 3.2, Globulin 4.1, Albumin/Globulin Ratio 0.8 L 09/14/22 14:55: Blood Type Cancelled, Antibody Screen Cancelled 09/14/22 15:25: PT 14.2, INR 1.1, APTT 28.2 09/14/22 15:25: Blood Type A POSITIVE, Antibody Screen NEGATIVE 09/15/22 05:55: WBC 5.8, RBC 3.73 L, Hgb 8.1 L, Hct 29.1 L, MCV 78.0 L, MCH 21.7 L, MCHC 27.8 L, RDW Std Deviation 51.2 H, RDW Coeff of Nurys 18.2 H, Plt Count 264, MPV 9.9, Immature Gran % (Auto) 0.300, Neut % (Auto) 59.9, Lymph % (Auto) 28.6, [place] % (Auto) 6.9, Eos % (Auto) 3.6, Baso % (Auto) 0.7, Absolute Neuts (auto) 3.5, Absolute Lymphs (auto) 1.66, Nucleated RBC % 0 09/15/22 05:55: Sodium 138, Potassium 4.0, Chloride 106, Carbon Dioxide 26.0, Anion Gap 6, BUN 16, Creatinine 1.07 H, Estim Creat Clear Calc 44.66, Est GFR (MDRD) Af Amer 66, Est GFR (MDRD) Non-Af 55 L, BUN/Creatinine Ratio 15.0, Glucose 106, Calcium 8.4 L, Phosphorus 3.3, Magnesium 2.0, TSH 8.90 H 09/15/22 05:55: Iron 38 L, TIBC 343, Iron Saturation 11.1 L, Ferritin 8 Radiography Diagnostic Testing: Radiology Impression Hip/Pelvis X-Ray 09/14/22 13:37 IMPRESSION: Left femoral neck fracture. Electronically Signed: Hammad Tilley MD at 14:23 EDT , Chest X-Ray 09/14/22 16:05 IMPRESSION: There are no acute findings. Electronically Signed: Vinod Arguelles MD at 17:18 EDT , Rhythm Strip Rhythm Strip: Sinus Rhythm (88) Rate: 75 Ectopy: None Physical Exam Const alert, oriented x3 and well nourished Constitutional Narrative: Obese, very pleasant, upper middle-aged, white female, lying in bed, sleepy as she was seen postoperatively however appears more comfortable than she did yesterday, nontoxic appearing, at bedside General Appearance: cooperative HEENT normocephalic, head/scalp atraumatic, hearing grossly normal bilaterally and moist oral mucous membranes Resp normal respiratory effort, no retractions, no use of accessory muscles and clear to auscultation bilaterally Auscultation: Negative for rales, rhonchi or wheezes Cardio regular rate, regular rhythm, S1 normal heart sound, S2 normal heart sound, no murmurs, no rub, no gallops and no clicks GI normal to inspection, nondistended, normoactive bowel sounds, soft to palpation and non-tender Extremity no clubbing, cyanosis or edema Extremity Narrative: KASHMIR hose on bilateral lower extremities, polar ice in place, pedal pulses are 2+, cap refill is good Neuro oriented x3 and no focal motor deficits Speech: speech normal Psych affect normal Psych Narrative: Very pleasant, appropriately interactive Assessment & Plan Assessment/Plan (1) Fracture of femoral neck, left: PLAN: Plan Left femoral neck fracture -Postop day 0 left cemented hemiarthroplasty -Continue scheduled Tylenol 1000 mg every 8 -Continue as needed muscle relaxants with tizanidine every 8 -Continue as needed oxycodone -Weightbearing as tolerated -PT/OT consultation consultation in place -Await orthopedic surgery recommendations for long-term DVT prophylaxis after discharge Recent dental surgery -We will continue home antibiotics as previously prescribed -Recommend previously scheduled outpatient follow-up History of chronic anemia -Appears iron deficient -Will give 1 dose of IV iron and start oral iron History of celiac's disease -No current issues -Gluten-free diet History of GERD -Continue home medication once verified History of atrial fibrillation -Remote -Underwent cardiac ablation at least 10 years ago with no cardiac issues since that point time -EKG is pending however on auscultation rate is within normal limits and regular Bipolar disorder -Continue home medications Obesity -BMI 35.4 -Complicates treatment, prognosis, outcomes -Recommend weight loss DVT prophylaxis -Lovenox subcu 40 mill grams daily -SCDs for suspected interruption and Lovenox therapy perioperatively CODE STATUS Full code Charges/Coding Visit Charges Inpatient E&M: 81372 Subs Hosp L2
--- NOTE | 2022-09-15 13:04 | NURSING ---
spoke w/ Dianelys in Rx after 2 nd call-she will send IV iron now to be given
[2022-09-15] MEDS: AMOXICILLIN 500 MG CAPSULE PO ×2 (13:34→21:43)
[2022-09-15] MEDS: Acetaminophen 500 MG Tablet 1000 MG PO ×2 (13:35→21:43)
[2022-09-15] MEDS: buPROPion (XL) 150 MG TABLET.XL PO (13:36)
[2022-09-15] MEDS: Famotidine 20 MG Tablet PO (13:36)
[2022-09-15] MEDS: oxyCODONE 5 MG Tablet PO (17:23)
[2022-09-15] MEDS: Ferrous Sulfate 325 MG Tablet PO (17:23)
[2022-09-15] MEDS: Ondansetron 4 MG/2 ML Vial IV (20:03)
[2022-09-15] MEDS: Senna/Docusate Sodium 1 Tablet 2 TABLET PO (20:03)
[2022-09-15] MEDS: OLANZapine 10 MG Tablet PO (21:42)
[2022-09-15] MEDS: Polyethylene Glycol 3350 17 GM PACKET PO (21:42)
[2022-09-15] MEDS: Meloxicam 15 MG Tablet PO (21:43)
[2022-09-15] MEDS: Sertraline 100 MG Tablet 200 MG PO (21:43)
[2022-09-15] MEDS: Zolpidem Tartrate 5 MG Tablet PO (21:43)
--- NOTE | 2022-09-15 23:36 | NURSING ---
pts bed exit going off. staff responded immediately and pt was found laying on the floor on operative L Hip/side. pt states i was having diarrhea because of my history of IBS and i was trying to go to the bathroom. pt A&Ox3. push pulls equal BUE and BLE. denies dizziness or hitting head. denies N/T. new bruise noted around L hip incision site. drsg D&I. denies pain assisted off floor and onto BSC x4 assist to finish having BM. hygiene provided from incont of stool. bed linens changed. Talon notified at [phone]. repeat hip xray ordered. post fall protocol followed.
[2022-09-16] VITALS (8 sets, daily range): BP systolic 112–139; BP diastolic 46–60; PULSE 84–92; RESP 16–18; TEMP 36.4–37.1; O2SAT 93–100
--- NOTE | 2022-09-16 00:15 | RAD_ITS ---
EXAM: XR Hip Unilateral with Pelvis when performed; 2-3 Views INDICATION: Female, 67 years old. Recent left hip surgery. Left hip pain status post fall TECHNIQUE: AP and lateral views COMPARISON: None FINDINGS: BONES: There is postoperative change from left hip bipolar hemiarthroplasty. Components are normal alignment. There is no periarticular instrumentation lucency. There is no acute fracture. No lytic or blastic lesion. The sacrum, bilateral iliac wings, pubic rami initial tuberosities are intact.. Visualized lower lumbar spine is unremarkable. JOINTS: The right hip is in normal alignment with mild degenerative change. Bilateral sacroiliac joints are unremarkable. SOFT TISSUES: No soft tissue abnormality. RAD/HIP, UNI W/ Pelvis 2-3 Views IMPRESSION: Postoperative change from left hip bipolar hemiarthroplasty with no evidence of instrumentation failure and no acute abnormality of the pelvis Electronically Signed: Todd Steele MD at 1:20 EDT ,
--- NOTE | 2022-09-16 03:26 | NURSING ---
pt requesting to not call and notify him of pts fall. pt will tell him when he comes later this morning otherwise he will just worry. pt is A&Ox3 at this time
[2022-09-16 05:56] LABS: Absolute Lymphocyte Count 0.91 X10^3/uL (0.83-4.51); Absolute Neutrophil Count 9.4 X10^3/uL (2.0-7.7); Basophil# 0.03 X10^3/uL; Basophil% 0.3 % (0-1); Eosinophil# 0.02 X10^3/uL; Eosinophils% 0.2 % (0-5); Lymphocyte # 0.91 X10^3/ul (0.83-4.51); Lymphocyte % 8.3 % (19-41); Mean Corpuscular Hgb 21.7 pg (27.0-32.0); Mean Corpuscular Volume 77.6 fL (81-99); Mean Platelet Vol. 9.6 fl (6.2-12.0); Monocyte# 0.54 X10^3/uL; Monocyte% 4.9 % (0-10); NRBC Flagged by Analyzer 0 % (0-5); Neutrophil # 9.35 X10^3/uL (2.7-7.7); Neutrophil % 85.8 % (47-70); Platelet Count 211 K/mm3 (150-450); RBC Distribution Width CV 18.1 % (11.6-14.6); RBC Distribution Width SD 50.4 fl (35.1-43.9); Red Blood Count 3.22 M/mm3 (4.2-5.4); White Blood Count 10.9 K/mm3 (4.4-11.0)
[2022-09-16] MEDS: AMOXICILLIN 500 MG CAPSULE PO ×3 (06:09→21:28)
[2022-09-16] MEDS: Acetaminophen 500 MG Tablet 1000 MG PO ×3 (06:09→21:28)
[2022-09-16 06:38] LABS: Anion Gap 4 (5-15); BUN 21 mg/dL (7-18); BUN/Creat Ratio 19.3 RATIO (10-20); Calcium,Total 7.9 mg/dL (8.5-10.1); Chloride 105 mmol/L (98-107); Creatinine, Serum 1.09 mg/dL (0.55-1.02); EST Glomerular Filtration Rate 53 mL/min (>60); Est Glom Filt Rate - Afr Amer 65 mL/min (>60); Estimated Creatinine Clearance 43.84 ml/min; Glucose 131 mg/dL (74-106); Potassium 4.3 mmol/L (3.5-5.1); Sodium Level 136 mmol/L (136-145)
[2022-09-16] MEDS: Enoxaparin 40 MG/0.4 ML Syringe SC (08:57)
[2022-09-16] MEDS: buPROPion (XL) 150 MG TABLET.XL PO (08:57)
[2022-09-16] MEDS: Famotidine 20 MG Tablet PO (08:58)
--- NOTE | 2022-09-16 09:28 | PN.ORTHO_ITS ---
Subjective Subjective Feeling well. Had a fall but getting up and around. Hip feels ok. thinks I did a great job Objective Data Objective Data POD 1 L hip gege Vital Signs: Vital Signs Temp Pulse Resp BP Pulse Ox O2 Del Method O2 Flow Rate 97.5 F L 88 18 112/60 94 Room Air 2 09/16/22 03:14 09/16/22 03:14 09/16/22 03:14 09/16/22 03:14 09/16/22 09:18 09/16/22 09:19 09/16/22 03:14 Oxygen Flow Rate (L/min) 2 Oxygen Delivery Method Room Air Weight: 205 lb 7.533 oz Body Mass Index (BMI) 35.2 Intake & Output: Intake and Output for Last 24 Hours 09/14/22 09/15/22 09/16/22 23:59 23:59 23:59 Intake Total 240 / 640 1267 / 1267 Output Total 1450 / 1450 350 / 350 Balance 240 / 640 -183 / -183 -350 / -350 Lab / Micro Data Attestation: I reviewed the patient's lab results. Result Diagrams: 09/16/22 05:41 09/16/22 05:41 Labs: Laboratory Results - last 24 hr 09/14/22 15:25: Crossmatch See Detail 09/16/22 05:41: WBC 10.9, RBC 3.22 L, Hgb 7.0 L, Hct 25.0 L, MCV 77.6 L, MCH 21.7 L, MCHC 28.0 L, RDW Std Deviation 50.4 H, RDW Coeff of Nurys 18.1 H, Plt C ount 211, MPV 9.6, Immature Gran % (Auto) 0.500, Neut % (Auto) 85.8 H, Lymph % (Auto) 8.3 L, [place] % (Auto) 4.9, Eos % (Auto) 0.2, Baso % (Auto) 0.3, Absolute Neuts (auto) 9.4 H, Absolute Lymphs (auto) 0.91, Nucleated RBC % 0 09/16/22 05:41: Sodium 136, Potassium 4.3, Chloride 105, Carbon Dioxide 27.0, Anion Gap 4 L, BUN 21 H, Creatinine 1.09 H, Estim Creat Clear Calc 43.84, Est GFR (MDRD) Af Amer 65, Est GFR (MDRD) Non-Af 53 L, BUN/Creatinine Ratio 19.3, Glucose 131 H, Calcium 7.9 L Micro: Microbiology 09/16/22 05:56 Stool Stool Occult Blood (ALIZA) - Final Occult Blood Positive Radiography Diagnostic Testing: Radiology Impression Hip X-Ray 09/15/22 07:41 IMPRESSION: Image guidance for left hip arthroplasty. Please refer to operative note. Electronically Signed: Virgen Mares MD at 13:02 EDT , Hip/Pelvis X-Ray 09/16/22 00:15 IMPRESSION: Postoperative change from left hip bipolar hemiarthroplasty with no evidence of instrumentation failure and no acute abnormality of the pelvis Electronically Signed: Todd Steele MD at 1:20 EDT , Rhythm Strip Rhythm Strip: Sinus Rhythm (88) Rate: 75 Ectopy: None Physical Exam Const alert, oriented x3 and no apparent distress Extremity normal capillary refill Extremity Narrative: drsg dry, intact, sitting upright in chair and getting around with one assist and walker, nvi, normal sens and motor function to foot, strong DP pulse. Assessment & Plan Assessment/Plan (1) Fracture of femoral neck, left: PLAN: 67 F POD 1 L hip gege for NOF fracture. Would suggest xarelto 10 mg po OD starting this evening if hospitalist in agreement. 30 days post op. Continue WBAT.
[2022-09-16] MEDS: Ferrous Sulfate 325 MG Tablet PO ×2 (11:06→17:51)
--- NOTE | 2022-09-16 11:50 | EX.PCM.CON.G ---
HPI Consult Data Date of Consult: 09/16/22 HPI Narrative Reason for Consultation: GI bleed HPI Narrative: YAMILET LOPEZ, is a 67-year-old woman with history of psychiatric disorder on no antithrombotic or anticoagulant who fell off of a wagon.? She was found with her left hip in flexion and slightly internally rotated. She was determined to have a?left displaced femoral neck fracture. She underwent successful surgery and was noted on anticoagulation after the procedure. She does meloxicam as needed for pain. She also takes famotidine for mild GERD symptoms. I was called to evaluate her after she started having a decreased in hemoglobin. She is on enoxaparin for DVT prophylaxis. [facility] Medical History Arthritis Bipolar 1 disorder GERD (gastroesophageal reflux disease) Insomnia Home Medications alprazolam 0.5 mg tablet 0.5 mg PO DAILY PRN Anxiety 09/14/22 [History Last Taken Unknown] amoxicillin 500 mg capsule 500 mg PO TID Check with primary doctor 09/14/22 [History Last Taken 09/14/22 0800] bupropion HCl 150 mg 24 hr tablet, extended release 150 mg PO DAILY 09/14/22 [History Last Taken Unknown] eszopiclone 3 mg tablet 3 mg PO QHS PRN Insomnia 09/14/22 [History Last Taken Unknown] famotidine 20 mg tablet 20 mg PO DAILY 09/14/22 [History Last Taken Unknown] meloxicam 15 mg tablet 15 mg PO QHS pain 09/14/22 [History Last Taken Unknown] olanzapine 10 mg tablet 10 mg PO QHS bipolar 09/14/22 [History Last Taken Unknown] sertraline 100 mg tablet 200 mg PO QHS bipolar 09/14/22 [History Last Taken Unknown] Allergy/AdvReac Type Severity Reaction Status Date / Time ciprofloxacin [From Cipro] Allergy Hives Verified 09/14/22 13:40 hydrocodone [From [place]] Allergy Hives Verified 09/14/22 13:40 morphine Allergy Hives Verified 09/14/22 13:40 Family History (Updated 09/14/22 @ 15:[address] Nidhi Camacho DO) Mother Renal cell carcinoma Father Small cell lung cancer Other Diabetes Heart disease Hypertension Surgical History (Updated 09/14/22 @ 15:[address] Nidhi Camacho DO) H/O cardiac radiofrequency ablation History of dental surgery Social History (Updated 09/14/22 @ 15:[address] 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 Smoking Status: Never smoker alcohol intake: current alcohol intake frequency: holidays/special occasions only substance use type: does not use ROS Constitutional Constitutional: Denies anorexia, change in weight, chills, fatigue, fever(s), malaise, night sweats, weakness or other Eyes Eyes: Denies blurry vision, change in eye color, change in vision, discharge from eye(s), double vision, erythema, eye pain, loss of vision or other ENT HEENT: Denies abnormal hearing, dysphagia, ear pain, epistaxis, headache(s), hearing loss, nasal congestion, nasal discharge, post nasal drip, sinus pressure, sore throat or other Cardiovascular Cardiovascular: Denies chest pain, claudication, dyspnea on exertion, edema, lightheadedness, orthopnea, palpitations, paroxysmal nocturnal dyspnea, rapid heart rate, syncope or other Respiratory/Chest Respiratory/Chest: Denies cough, dyspnea, excessive phlegm production, hemoptysis, productive cough, shortness of breath at rest, shortness of breath with exertion, wheezing or other Gastrointestinal Gastrointestinal: Denies abdominal pain, coffee ground emesis, constipation, diarrhea, dyspepsia, hematemesis, hematochezia, loose stools, melena, nausea, vomiting or other Genitourinary Genitourinary: Denies burning urination, difficulty urinating, dysuria, hematuria, nocturia, urinary frequency, urinary hesitancy, urinary incontinence, urinary urgency or other Musculoskeletal Musculoskeletal: Reports arthralgias, joint pain, joint stiffness, joint swelling and other Details: Inability to move left leg due to pain ; Denies back pain, myalgias or neck pain Neurologic Neurologic: Denies abnormal gait, abnormal speech, confusion, disequilibrium, dizziness, focal weakness, headache(s), numbness, paresthesias, seizure-like activity, seizures, syncope, tingling, tremor(s) or other Psychiatric Psychiatric: Reports other Details: History of bipolar disorder Hematologic/Lymphatic Hematologic/Lymphatic: Denies anemia, easy bleeding, easy bruising, lymphadenopathy or other Allergic/Immunologic Allergic/Immunologic: Denies rhinitis, hives, eczemia, asthma or other Physical Exam Const alert, oriented x3, no apparent distress and well nourished Constitutional Narrative: Obese, upper middle-aged, white female, lying in bed, appears comfortable at this time, nontoxic General Appearance: cooperative HEENT normocephalic, head/scalp atraumatic, hearing grossly normal bilaterally and moist oral mucous membranes HEENT Narrative: Previous surgical intervention on lower jaw noted, Mallampati 2-3, no thrush Resp normal respiratory effort, no retractions, no use of accessory muscles and clear to auscultation bilaterally Auscultation: Negative for rales, rhonchi or wheezes Cardio regular rate, regular rhythm, S1 normal heart sound, S2 normal heart sound, no murmurs, no rub, no gallops and no clicks GI normal to inspection, nondistended, normoactive bowel sounds, soft to palpation and non-tender Extremity no clubbing, cyanosis or edema Extremity Narrative: Left hip with very minimal swelling and resolving ecchymosis at surgical site, dressing is peeling off a bit with no drainage noted-discussed with nursing Neuro oriented x3 and no focal motor deficits Speech: speech normal Psych affect normal Psych Narrative: Pleasant Lab / Micro Data Result Diagrams: 09/17/22 05:17 09/17/22 05:17 Labs: Laboratory Results - last 24 hr 09/14/22 15:25: Crossmatch See Detail 09/14/22 15:25: Crossmatch See Detail 09/17/22 05:17: WBC 11.7 H, RBC 3.05 L, Hgb 7.0 L, Hct 23.2 L, MCV 76.1 L, MCH 23.0 L, MCHC 30.2 L D, RDW Std Deviation 48.1 H, RDW Coeff of Nurys 17.9 H, Plt Count 210, MPV 10.5, Immature Gran % (Auto) 0.800, Neut % (Auto) 78.5 H, Lymph % (Auto) 13.1 L, [place] % (Auto) 5.8, Eos % (Auto) 1.5, Baso % (Auto) 0.3, Absolute Neuts (auto) 9.1 H, Absolute Lymphs (auto) 1.53, Nucleated RBC % 0 09/17/22 05:17: Sodium 138, Potassium 3.7, Chloride 107, Carbon Dioxide 25.0, Anion Gap 6, BUN 28 H, Creatinine 1.16 H, Estim Creat Clear Calc 41.20, Est GFR (MDRD) Af Amer 60, Est GFR (MDRD) Non-Af 50 L, BUN/Creatinine Ratio 24.1 H, Glucose 107 H, Calcium 8.1 L Rhythm Strip Rhythm Strip: Sinus Rhythm (88) Rate: 75 Ectopy: None Assessment & Plan Assessment/Plan (1) GI bleed: PLAN: Differential diagnosis for her acute blood loss anemia is upper GI bleed, GI bleed and lower GI tract. She should undergo an upper endoscopy and possibly colonoscopy versus capsule endoscopy. She was explained alternatives, risk, benefits including outstanding bleeding, infection, sepsis, perforation, need for discharge and . She have an ASA of 3. Charges/Coding Visit Charges Inpatient E&M: 82059 Init Hosp L3
--- NOTE | 2022-09-16 13:34 | PN.HOSP_ITS ---
Reason for Visit Reason for Visit: Ankle fall/left hip pain Subjective Subjective Patient took Ambien overnight and try to get out of bed independently had a fall on her operative hip. Follow-up x-rays were unremarkable. Discontinue Ambien and will substitute melatonin. It does appear the patient takes Lunesta at home. Patient has no specific complaints at this time. Patient states her pain is much more controlled since she had surgery to fix her hip. Objective Data Objective Data Vital Signs: Vital Signs Temp Pulse Resp BP Pulse Ox O2 Del Method O2 Flow Rate 98.2 F 85 16 128/50 H 100 Nasal Cannula 3 09/16/22 13:18 09/16/22 13:18 09/16/22 13:18 09/16/22 13:18 09/16/22 13:18 09/16/22 13:18 09/16/22 13:18 Oxygen Flow Rate (L/min) 3 Oxygen Delivery Method Nasal Cannula Weight: 93.2 kg Body Mass Index (BMI) 35.2 Intake & Output: Intake and Output for Last 24 Hours 09/14/22 09/15/22 09/16/22 23:59 23:59 23:59 Intake Total 240 / 640 1267 / 1267 0 / 0 Output Total 1450 / 1450 350 / 350 Balance 240 / 640 -183 / -183 -350 / -350 Lab / Micro Data Result Diagrams: 09/16/22 05:41 09/16/22 05:41 Labs: Laboratory Results - last 24 hr 09/14/22 15:25: Crossmatch See Detail 09/16/22 05:41: WBC 10.9, RBC 3.22 L, Hgb 7.0 L, Hct 25.0 L, MCV 77.6 L, MCH 21.7 L, MCHC 28.0 L, RDW Std Deviation 50.4 H, RDW Coeff of Nurys 18.1 H, Plt Count 211, MPV 9.6, Immature Gran % (Auto) 0.500, Neut % (Auto) 85.8 H, Lymph % (Auto) 8.3 L, [place] % (Auto) 4.9, Eos % (Auto) 0.2, Baso % (Auto) 0.3, Absolute Neuts (auto) 9.4 H, Absolute Lymphs (auto) 0.91, Nucleated RBC % 0 09/16/22 05:41: Sodium 136, Potassium 4.3, Chloride 105, Carbon Dioxide 27.0, Anion Gap 4 L, BUN 21 H, Creatinine 1.09 H, Estim Creat Clear Calc 43.84, Est GFR (MDRD) Af Amer 65, Est GFR (MDRD) Non-Af 53 L, BUN/Creatinine Ratio 19.3, Glucose 131 H, Calcium 7.9 L Micro: Microbiology 09/16/22 05:56 Stool Stool Occult Blood (ALIZA) - Final Occult Blood Positive Radiography Diagnostic Testing: Radiology Impression Hip/Pelvis X-Ray 09/16/22 00:15 IMPRESSION: Postoperative change from left hip bipolar hemiarthroplasty with no evidence of instrumentation failure and no acute abnormality of the pelvis Electronically Signed: Todd Steele MD at 1:20 EDT , Rhythm Strip Rhythm Strip: Sinus Rhythm (88) Rate: 75 Ectopy: None Physical Exam Const alert, oriented x3, no apparent distress and well nourished Constitutional Narrative: Obese, upper middle-aged, white female, Sleepy but awakens easily and alert and oriented x3, appears comfortable at this time, nontoxic General Appearance: cooperative HEENT head/scalp atraumatic, moist oral mucous membranes and oropharynx normal HEENT Narrative: Postoperative changes in the lower jaw noted. Head and Scalp: normocephalic Resp normal respiratory effort, no retractions, no use of accessory muscles and clear to auscultation bilaterally Auscultation: Negative for rales, rhonchi or wheezes Cardio regular rate, regular rhythm, S1 normal heart sound, S2 normal heart sound, no murmurs, no rub, no gallops and no clicks GI normal to inspection, nondistended, normoactive bowel sounds, soft to palpation and non-tender Extremity no clubbing, cyanosis or edema Extremity Narrative: Left lower extremity with some swelling and ecchymosis at the surgical site. Postoperative dressing is intact without any drainage, mild tenderness around the area Neuro oriented x3, moves all extremities and no focal motor deficits Neuro Narrative: Decreased ability to move left lower extremity secondary to being postoperative leg Speech: speech normal Psych affect normal Psych Narrative: Pleasant, appropriate but sleepy today Assessment & Plan Assessment/Plan (1) Fracture of femoral neck, left: PLAN: Plan Left femoral neck fracture -Postop day 1 left cemented hemiarthroplasty -Continue scheduled Tylenol 1000 mg every 8 -Continue as needed muscle relaxants with tizanidine every 8 -Continue as needed oxycodone -Weightbearing as tolerated -PT/OT consultation pending -Await orthopedic surgery recommending Xarelto 10 mg daily for 30 days postoperatively -Follow up for postoperative care in 2 weeks Recent dental surgery -We will continue home antibiotics as previously prescribed -Recommend previously scheduled outpatient follow-up Acute on chronic anemia -Appears iron deficient -Patient states she is chronically anemic due to her celiac's disease however she does not know her baseline hemoglobin -Hemoglobin on initial lab was 8.1 and 7.0 this morning -Signs of acute bleeding and suspect drop is postoperative -Since she is just 8 we will give 1 unit of packed red blood cells and repeat CBC in a.m. -Will give 1 dose of IV iron given on 09/15/2022 -Oral iron started -Hemoccult pending -Start oral iron twice daily today -We will discharge patient with oral iron -Repeat CBC in a.m. History of celiac's disease -No current issues -Gluten-free diet History of GERD -Continue home medication once verified History of atrial fibrillation -Remote -Underwent cardiac ablation at least 10 years ago with no cardiac issues since that point time -EKG is pending however on auscultation rate is within normal limits and regular Bipolar disorder -Continue home medications Insomnia -Patient is on Lunesta at home -Substituted Ambien by pharmacy and patient very sleepy -We will schedule melatonin and discontinue substituted Ambien -Restart Lunesta at discharge Obesity -BMI 35.4 -Complicates treatment, prognosis, outcomes -Recommend weight loss DVT prophylaxis -Lovenox subcu 40 mill grams daily -SCDs for suspected interruption and Lovenox therapy perioperatively -Orthopedic surgery is recommending Xarelto 10 mg daily for 30 days at discharge CODE STATUS Full code Charges/Coding Visit Charges Inpatient E&M: 46733 Subs Hosp L2
[2022-09-16] MEDS: buPROPion (XL) 150 MG TABLET.XL 450 MG PO (17:50)
[2022-09-16] MEDS: 0.9% Saline Lock 10 ML Syringe IV ×2 (18:00→21:29)
[2022-09-16] MEDS: Ondansetron 4 MG/2 ML Vial IV (18:00)
[2022-09-16] MEDS: ESZOPICLONE 3 MG TABLET PO (21:27)
[2022-09-16] MEDS: Meloxicam 15 MG Tablet PO (21:28)
[2022-09-16] MEDS: Sertraline 100 MG Tablet PO (21:28)
[2022-09-16] MEDS: OLANZapine 10 MG Tablet PO (21:29)
[2022-09-17] VITALS (12 sets, daily range): BP systolic 108–137; BP diastolic 56–75; PULSE 73–94; RESP 14–18; TEMP 36.2–37.2; O2SAT 97–100
--- NOTE | 2022-09-17 | EGD_PTH ---
PATIENT: YAMILET LOPEZ LOC: MS3 U#:[id number] AGE/SX: 67/F ROOM: [facility] [place]14[place]: Dr. Mikie Marcos MD : 1955 BED: 1 DIS: 09/18/2022 SPEC #: [id number] RECD: 09/17/22 15:13 STATUS: CAR REConsuelo #: [id number] EDITH: 09/17/22 00:[address]: Anuj Ramirez DEPT: SURGICAL PATHOLOGY RECD BY: Todd Castellanos ENTERED: 09/18/22 09:36 SP TYPE: EGD BIOPSY OTHR DR: DO Dr. Mikie Mullen MD Dr. Scott Mollison, MD No Primary Care Phys Tissues: Duodenum, NOS Procedures: Surgery Specimen Level IV Comments: @ Ordering doctor for SUIV edited from to @ by TYLOR at 09/18/22 145 @ Submitting doctor edited from to @ by TYLOR at 09/18/22 145 HEADER OPERATION: EGD ([facility] [place]), biopsy, gold probe cautery PRE-OP DIAGNOSIS: GI bleed TISSUE SUBMITTED: Duodenum MICROSCOPIC DIAGNOSIS Duodenum, biopsy: A fragment of duodenal mucosa with mild nonspecific chronic inflammation. See comment. SHENG:olga 09/19/2022 COMMENT Correlation with clinical, endoscopic findings and appropriate follow up are necessary. MICROSCOPIC DESCRIPTION Slides are reviewed. GROSS DESCRIPTION Received in fixative is one container labeled with the patient's name and designated duodenum. The specimen consists of one irregular fragment of light steiner soft tissue that measures 0.3 x 0.3 x 0.1 cm. The specimen is totally submitted in one cassette. / SHENG:olga 09/18/2022 TC:3 CPT: 98950
[2022-09-17] MEDS: Acetaminophen 500 MG Tablet 1000 MG PO ×3 (05:24→22:00)
[2022-09-17] MEDS: AMOXICILLIN 500 MG CAPSULE PO ×3 (05:24→22:00)
[2022-09-17 05:46] LABS: Absolute Lymphocyte Count 1.53 X10^3/uL (0.83-4.51); Absolute Neutrophil Count 9.1 X10^3/uL (2.0-7.7); Basophil# 0.04 X10^3/uL; Basophil% 0.3 % (0-1); Eosinophil# 0.18 X10^3/uL; Eosinophils% 1.5 % (0-5); Hematocrit 23.2 % (37-47); Lymphocyte # 1.53 X10^3/ul (0.83-4.51); Lymphocyte % 13.1 % (19-41); Mean Corp Hgb Conc 30.2 g/dL (32-36); Mean Corpuscular Volume 76.1 fL (81-99); Mean Platelet Vol. 10.5 fl (6.2-12.0); Monocyte# 0.68 X10^3/uL; Monocyte% 5.8 % (0-10); NRBC Flagged by Analyzer 0 % (0-5); Neutrophil # 9.14 X10^3/uL (2.7-7.7); Neutrophil % 78.5 % (47-70); Platelet Count 210 K/mm3 (150-450); RBC Distribution Width CV 17.9 % (11.6-14.6); RBC Distribution Width SD 48.1 fl (35.1-43.9); Red Blood Count 3.05 M/mm3 (4.2-5.4); White Blood Count 11.7 K/mm3 (4.4-11.0)
[2022-09-17 06:14] LABS: Anion Gap 6 (5-15); BUN 28 mg/dL (7-18); BUN/Creat Ratio 24.1 RATIO (10-20); Calcium,Total 8.1 mg/dL (8.5-10.1); Chloride 107 mmol/L (98-107); Creatinine, Serum 1.16 mg/dL (0.55-1.02); EST Glomerular Filtration Rate 50 mL/min (>60); Est Glom Filt Rate - Afr Amer 60 mL/min (>60); Glucose 107 mg/dL (74-106); Potassium 3.7 mmol/L (3.5-5.1); Sodium Level 138 mmol/L (136-145)
[2022-09-17] MEDS: 0.9% Saline Lock 10 ML Syringe IV ×2 (08:02→13:12)
[2022-09-17] MEDS: Lactated Ringers 1,000 ML 15 ML IV (10:37)
--- NOTE | 2022-09-17 11:15 | CASEMGMT ---
RN CM NOTE: RN CM to room to complete initial RN CM assessment. Pt is out of room at this time. Chary BSN RN CM
--- NOTE | 2022-09-17 11:25 | PCM.PN.HOSP ---
Reason for Visit Reason for Visit: Mechanical fall with resulting left hip pain Subjective Subjective No issues overnight. Patient states her hip feels great. I discussed her hemoglobin dropped despite 1 unit being given and guaiac positive stool. Patient states she has seen GI in the past and had an upper and lower endoscopy but cannot remember exactly when that was. Indicates she has had hidden blood in her stool previously. Discussed consultation to gastroenterology especially with needing to go home on aggressive DVT prophylaxis with surgical intervention on her left hip. She voiced understanding. Objective Data Objective Data Vital Signs: Vital Signs Temp Pulse Resp BP Pulse Ox O2 Del Method O2 Flow Rate 99 F 74 18 108/56 L 99 Room Air 2 09/17/22 09:46 09/17/22 09:46 09/17/22 09:46 09/17/22 09:46 09/17/22 09:46 09/17/22 09:46 09/17/22 09:46 Oxygen Flow Rate (L/min) 2 Oxygen Delivery Method Room Air Weight: 93.2 kg Body Mass Index (BMI) 35.2 Intake & Output: Intake and Output for Last 24 Hours 09/15/22 09/16/22 09/17/22 23:59 23:59 23:59 Intake Total 1267 / 1267 600 / 600 35 35 Output Total 1450 / 1450 600 / 600 Balance -183 / -183 0 / 0 Lab / Micro Data Result Diagrams: 09/17/22 05:17 09/17/22 05:17 Labs: Laboratory Results - last 24 hr 09/14/22 15:25: Crossmatch See Detail 09/14/22 15:25: Crossmatch See Detail 09/17/22 05:17: WBC 11.7 H, RBC 3.05 L, Hgb 7.0 L, Hct 23.2 L, MCV 76.1 L, MCH 23.0 L, MCHC 30.2 L D, RDW Std Deviation 48.1 H, RDW Coeff of Nurys 17.9 H, Plt Count 210, MPV 10.5, Immature Gran % (Auto) 0.800, Neut % (Auto) 78.5 H, Lymph % (Auto) 13.1 L, [place] % (Auto) 5.8, Eos % (Auto) 1.5, Baso % (Auto) 0.3, Absolute Neuts (auto) 9.1 H, Absolute Lymphs (auto) 1.53, Nucleated RBC % 0 09/17/22 05:17: Sodium 138, Potassium 3.7, Chloride 107, Carbon Dioxide 25.0, Anion Gap 6, BUN 28 H, Creatinine 1.16 H, Estim Creat Clear Calc 41.20, Est GFR (MDRD) Af Amer 60, Est GFR (MDRD) Non-Af 50 L, BUN/Creatinine Ratio 24.1 H, Glucose 107 H, Calcium 8.1 L Micro: Microbiology 09/16/22 05:56 Stool Stool Occult Blood (ALIZA) - Final Occult Blood Positive Rhythm Strip Rhythm Strip: Sinus Rhythm (88) Rate: 75 Ectopy: None Physical Exam Const alert, oriented x3, no apparent distress and well nourished Constitutional Narrative: Obese, upper middle-aged, white female, lying in bed, appears comfortable at this time, nontoxic General Appearance: cooperative HEENT normocephalic, head/scalp atraumatic, hearing grossly normal bilaterally and moist oral mucous membranes HEENT Narrative: Previous surgical intervention on lower jaw noted, Mallampati 2-3, no thrush Resp normal respiratory effort, no retractions, no use of accessory muscles and clear to auscultation bilaterally Auscultation: Negative for rales, rhonchi or wheezes Cardio regular rate, regular rhythm, S1 normal heart sound, S2 normal heart sound, no murmurs, no rub, no gallops and no clicks GI normal to inspection, nondistended, normoactive bowel sounds, soft to palpation and non-tender Extremity no clubbing, cyanosis or edema Extremity Narrative: Left hip with very minimal swelling and resolving ecchymosis at surgical site, dressing is peeling off a bit with no drainage noted-discussed with nursing Neuro oriented x3 and no focal motor deficits Speech: speech normal Psych affect normal Psych Narrative: Pleasant Assessment & Plan Assessment/Plan (1) Fracture of femoral neck, left: (2) GI bleed: (3) Acute on chronic anemia: (4) Iron deficiency: PLAN: Plan Left femoral neck fracture -Postop day 2 left cemented hemiarthroplasty -Continue scheduled Tylenol 1000 mg every 8 -Continue as needed muscle relaxants with tizanidine every 8 -Continue as needed oxycodone -Weightbearing as tolerated -PT/OT consultation pending -Await orthopedic surgery recommending Xarelto 10 mg daily for 30 days postoperatively--> will need to wait until GI bleeding has resolved -Follow up for postoperative care in 2 weeks GI bleed -Suspect upper with trend on serum creatinine and BUN -Start Protonix drip -N.p.o. -GI consultation with probable EGD later today--> discussed with Dr. James Reynolds on chronic anemia secondary to iron deficiency -Patient states she is chronically anemic due to her celiac's disease however she does not know her baseline hemoglobin -Hemoglobin on initial lab was 8.1 --> 7.0 yesterday and repeat hemoglobin this morning was 7.0 after 1 unit being given -Repeat 1 unit packed red blood cell again today -GI consultation -Will give 1 dose of IV iron given on 09/15/2022 -Oral iron started -Hemoccult pending -Start oral iron twice daily today -We will discharge patient with oral iron -Repeat CBC in a.m. History of celiac's disease -No current issues -Gluten-free diet Recent dental surgery -Continue Amoxil -Recommend previously scheduled outpatient follow-up History of GERD -Hold home medication and start Protonix drip History of atrial fibrillation -Remote -Underwent cardiac ablation at least 10 years ago with no cardiac issues since that point time -EKG is pending however on auscultation rate is within normal limits and regular Bipolar disorder -Continue home medications Insomnia -Patient is on Lunesta at home -Patient has brought in her home Lunesta as Ambien made her extremely drowsy Obesity -BMI 35.4 -Complicates treatment, prognosis, outcomes -Recommend weight loss DVT prophylaxis -SCDs -Lovenox on hold -We will hold Xarelto until GI bleeding is stabilized CODE STATUS Full code Charges/Coding Visit Charges Inpatient E&M: 83500 Subs Hosp L2
--- NOTE | 2022-09-17 12:08 | OP.EGD_ITS ---
Patient Name: Lois Chu Procedure Date: 09/17/2022 10:57 AM Date of : 1955 Age: 67 Procedure: Upper GI endoscopy Indications: Melena Providers: Anuj Ramirez DO Medicines: Monitored Anesthesia Care Patient Profile: This is a 67 year old female. Refer to note in patient chart for documentation of history and physical. Patient has symptoms of acute epigastric abdominal pain. Complications: No immediate complications. Procedure: Pre-Anesthesia Assessment: - Prior to the procedure, a History and Physical was performed, and patient medications and allergies were reviewed. The patient is competent. The risks and benefits of the procedure and the sedation options and risks were discussed with the patient. All questions were answered and informed consent was obtained. Patient identification and proposed procedure were verified by the physician. Mental Status Examination: normal. Prophylactic Antibiotics: The patient does not require prophylactic antibiotics. Prior Anticoagulants: The patient has taken no previous anticoagulant or antiplatelet agents. After reviewing the risks and benefits, the patient was deemed in satisfactory condition to undergo the procedure. The anesthesia plan was to use monitored anesthesia care (MAC). Immediately prior to administration of medications, the patient was re-assessed for adequacy to receive sedatives. The heart rate, respiratory rate, oxygen saturations, blood pressure, adequacy of pulmonary ventilation, and response to care were monitored throughout the procedure. The physical status of the patient was re-assessed after the procedure. After obtaining informed consent, the endoscope was passed under direct vision. Throughout the procedure, the patient's blood pressure, pulse, and oxygen saturations were monitored continuously. The gastroscope was introduced through the mouth, and advanced to the second part of duodenum. The upper GI endoscopy was accomplished without difficulty. The patient tolerated the procedure well. Scope In: 11:57:25 AM Scope Out: 12:02:34 PM Total Procedure Duration Time 0 hours 5 minutes 9 seconds Findings: The examined esophagus was normal. Multiple less than 5 mm sessile polyps with no bleeding and no stigmata of recent bleeding were found in the gastric fundus. One oozing cratered gastric ulcer with pigmented material was found in the gastric body. The lesion was 5 mm in largest dimension. Area was successfully injected with 5 mL of a 1:10,000 solution of epinephrine for drug delivery. Coagulation for hemostasis using heater probe was successful. Estimated blood loss was minimal. Decreased folds were found in the duodenal bulb. Biopsies were taken with a cold forceps for histology. Verification of patient identification for the specimen was done. Estimated blood loss was minimal. Impression: - Normal esophagus. - Multiple gastric polyps. - Oozing gastric ulcer with pigmented material. Injected. Treated with a heater probe. - Duodenal mucosal changes seen, diagnostic of celiac disease. Biopsied. Recommendation: - Return patient to hospital [facility] for ongoing care. - Resume previous diet. - Continue present medications. - Await pathology results. - Use Protonix (pantoprazole) 40 mg PO BID. Procedure Code(s): --- Professional --- 62177, 59, Esophagogastroduodenoscopy, flexible, transoral; with control of bleeding, any method 19277, 59, Esophagogastroduodenoscopy, flexible, transoral; with directed submucosal injection(s), any substance 05795, 51, Esophagogastroduodenoscopy, flexible, transoral; with biopsy, single or multiple CPT copyright 2017 [employer]. All rights reserved. The codes documented in this report are preliminary and upon tumbler operator review may be revised to meet current compliance requirements. Anuj Ramirez DO 09/17/2022 12:08:14 PM This report has been signed electronically. Number of Addenda: 0 Note Initiated On: 09/17/2022 10:57 AM
--- NOTE | 2022-09-17 12:08 | OP.CCLET_ITS ---
09/17/2022 No Primary Care Physician Re : Upper GI endoscopy procedure for Lois Chu Dear Care Physician This procedure was performed on Saturday, September 17, 2022. My impressions and recommendations are as follows: Impressions : - Normal esophagus. - Multiple gastric polyps. - Oozing gastric ulcer with pigmented material. Injected. Treated with a heater probe. - Duodenal mucosal changes seen, diagnostic of celiac disease. Biopsied. Recommendations : - Return patient to [facility]. - Resume previous diet. - Continue present medications. - Await pathology results. - Use Protonix (pantoprazole) 40 mg PO BID. My findings are described in the full procedure note, which is enclosed. If I can be of further assistance, please feel free to contact me at . Sincerely, Anuj Ramirez, 09/17/2022 12:08:14 PM This report has been signed electronically.
--- NOTE | 2022-09-17 14:00 | CASEMGMT ---
RN?CM?[employer]HICLE DRIVER?CM?to room to meet with patient for initial transition planning/care coordination?assessment.?RN?CM?introduced self and role at [facility].? Pt voices understanding and consents to?assessment?at this time.? Pt sitting up in chair in room in no distress at this time.? Pt is A/O at this time and answers all questions appropriately.?? Care providers, pharmacy, and demographics verified/updated at this time. PCP: Pt states was seeing a PCP @ [facility] in [place], [place], but her PCP left that practice. She plans to call [facility] to inquire about seeing another PCP there. She denies needing assistance w/getting established or for f/u. Specialists: Rachel CURRY and Dr Sanchez--GI in [place]. Dr Michael Nolan--psychiatrist in [facility] Pharmacy: [facility] Insurance:MMO, MCR A Prescription Benefit:?yes Living Will/HPOA:?Has both LW and HCPOA, who is her , Rio LNOK: , Rio Living Arrangements: Lives w/her in 2-story home w/2 steps to enter. Plans to do FFSU when returns home while recovering. Was indep prior to fall/injury. able to assist. Transportation:?Pt states drives self and states no transportation concerns at this time.? also drives. DME: ?States has the following DME:?RTS, rails/grab bars, cane. Pt does not have a WW and would like to get one prior to d/c. Verbal review of local DME co's and pt made aware [facility] is affiliated w/[facility]. Pt states to use [employer]. GAYR Winters RN, CM, made aware. ?Pt states no need for further DME at this time.? HHC/SNF: Hx HHC in the past when she needed IV atb's about 2 yrs ago. No hx of SNF. Pt declines wanting HHC, stating she would like to do OP therapy. GARY Winters RN, CM, made aware. She states her works from 7-3:30 every day but her son or daughter could also help w/transportation to OP therapy, if needed. Pt wishes to return home and states has no concerns with going home at time of discharge.? CM?to follow for any further discharge planning/needs.? Pt voices no further concerns/needs at this time.? Advised pt to ask for?CM?if any further questions/concerns/needs arise.? Voices understanding. PLAN:??Home w/OP therapy and WW. Chary BSN?RN?CM
[2022-09-17] MEDS: Ferrous Sulfate 325 MG Tablet PO ×2 (14:44→18:07)
[2022-09-17] MEDS: Sertraline 100 MG Tablet PO ×2 (14:48→22:00)
[2022-09-17] MEDS: buPROPion (XL) 150 MG TABLET.XL 450 MG PO (18:07)
[2022-09-17] MEDS: MELATONIN 10 MG TABLET PO (22:00)
[2022-09-17] MEDS: Meloxicam 15 MG Tablet PO (22:00)
[2022-09-17] MEDS: OLANZapine 10 MG Tablet PO (22:01)
[2022-09-18 03:51] VITALS: BP 153/58; PULSE 82; RESP 16; TEMP 36.6; O2SAT 98
[2022-09-18] MEDS: Acetaminophen 500 MG Tablet 1000 MG PO ×2 (05:33→14:08)
[2022-09-18] MEDS: AMOXICILLIN 500 MG CAPSULE PO ×2 (05:33→14:08)
[2022-09-18 06:10] LABS: Absolute Lymphocyte Count 1.69 X10^3/uL (0.83-4.51); Absolute Neutrophil Count 6.7 X10^3/uL (2.0-7.7); Basophil# 0.04 X10^3/uL; Basophil% 0.4 % (0-1); Eosinophil# 0.34 X10^3/uL; Eosinophils% 3.6 % (0-5); Hematocrit 26.4 % (37-47); Hemoglobin 7.9 g/dL (12.0-15.0); Lymphocyte # 1.69 X10^3/ul (0.83-4.51); Lymphocyte % 17.9 % (19-41); Mean Corp Hgb Conc 29.9 g/dL (32-36); Mean Corpuscular Hgb 23.9 pg (27.0-32.0); Mean Platelet Vol. 9.8 fl (6.2-12.0); Monocyte# 0.64 X10^3/uL; Monocyte% 6.8 % (0-10); NRBC Flagged by Analyzer 0 % (0-5); Neutrophil # 6.66 X10^3/uL (2.7-7.7); Neutrophil % 70.6 % (47-70); Platelet Count 198 K/mm3 (150-450); White Blood Count 9.4 K/mm3 (4.4-11.0)
[2022-09-18 06:54] LABS: Anion Gap 6 (5-15); BUN 22 mg/dL (7-18); BUN/Creat Ratio 24.2 RATIO (10-20); Calcium,Total 8.2 mg/dL (8.5-10.1); Chloride 111 mmol/L (98-107); Creatinine, Serum 0.91 mg/dL (0.55-1.02); EST Glomerular Filtration Rate 66 mL/min (>60); Est Glom Filt Rate - Afr Amer 80 mL/min (>60); Estimated Creatinine Clearance 52.51 ml/min; Glucose 98 mg/dL (74-106); Potassium 3.9 mmol/L (3.5-5.1); Sodium Level 141 mmol/L (136-145)
--- NOTE | 2022-09-18 07:31 | PCM.DC ---
Discharge Instructions Diet Discharge Diet: Low fat / Low cholesterol Activity Discharge Activity: Return to Normal Activity Weight Bearing Status: Weight bearing as tolerated Dressing / Incision Call your doctor if you observe: Fever of 101 or Higher, Coldness, Increased Pain, Numbness or Tingling, Change in Color, Inability to urinate, Inability to have a bowel movement, Using more than 1 pad per hour, Shortness of breath, Dizziness, Fainting spells, Swelling in the ankles, Chest pain, Prolonged hiccupping, Increased palpitations (irregular heartbeat) and Calf discomfort Follow Up Care When: IN 2 WEEKS Test Results: Test results from this visit will be discussed in further detail at your follow-up appointment, if applicable. Discharge Plan Admission Admit Date/Time: 09/14/22 14:49 Primary Reason for Your Visit: Left hip fracture and GI bleed due to gastric ulcer Attending Provider: Mikie Marcos Primary Care Provider: Care Physician,No Primary Consulting Providers: Michael Hanley ; Nidhi Camacho Discharge Orders/Prescriptions Prescriptions: New tizanidine 2 mg Tablet 4 mg PO Q8H PRN PRN (Reason: Muscle Spasms/Musculoskeletal Pain) 15 Days Qty: 30 0RF oxycodone 5 mg Tablet 2.5 mg PO Q4H PRN PRN (Reason: Pain Score 4-10) 3 Days Qty: 10 0RF Rx Instructions: 2.5 mg for 4-6/10 and 5 mg for 7-10/10 in intensity polyethylene glycol 3350 17 gram Powder In Packet 17 g PO DAILY Qty: 0 0RF sennosides-docusate sodium [Stool Softener-Stimulant Laxat] 8.6-50 mg Tablet 2 tab PO BID PRN PRN (Reason: Constipation) Qty: 0 0RF ferrous sulfate 325 mg (65 mg iron) tablet,delayed release (DR/EC) 325 mg PO DAILY Qty: 30 2RF ascorbic acid (vitamin C) 500 mg tablet 500 mg PO BID Qty: 60 2RF pantoprazole [Protonix] 40 mg tablet,delayed release (DR/EC) 40 mg PO BID Qty: 60 1RF Rx Instructions: advised TWICE DAILY FOR 2 WEEKS THEN ONCE DAILY Eliquis 2.5 mg tablet 2.5 mg PO BID 30 Days Qty: 60 0RF Rx Instructions: Start from 09/19/2022 Hold if hemoglobin less than 7.0. pantoprazole [Protonix] 40 mg tablet,delayed release (DR/EC) 40 mg PO BID Qty: 60 2RF Rx Instructions: 40 mg twice daily for 2 months then once daily Continued sertraline 100 mg tablet 200 mg PO QHS Label Comments: TAKE 2 TABLETS BY MOUTH DAILY olanzapine 10 mg tablet 10 mg PO QHS Label Comments: TAKE 1 TABLET BY MOUTH EVERYDAY AT BEDTIME alprazolam 0.5 mg tablet 0.5 mg PO DAILY PRN (Reason: Anxiety) Label Comments: TAKE 1 TABLET BY MOUTH EVERY DAY NEEDED bupropion HCl 150 mg tablet extended release 24 hr 450 mg PO DAILY Label Comments: TAKE 1 TABLET BY MOUTH EVERY DAY IN THE MORNING Rx Instructions: rechecked Bupropion dose with pt's pharmacy - pt takes mg daily eszopiclone 3 mg tablet 3 mg PO QHS PRN (Reason: Insomnia) Label Comments: TAKE 1 TABLET BY MOUTH AT BEDTIME NEEDED amoxicillin 500 mg capsule 500 mg PO TID 2 Days Qty: 0 0RF Rx Instructions: complete antibiotic course as prescribed as by dentist Discontinued meloxicam 15 mg tablet 15 mg PO QHS Label Comments: TAKE 1 TABLET BY MOUTH EVERY DAY famotidine 20 mg tablet 20 mg PO DAILY Label Comments: TAKE 1 TABLET BY MOUTH EVERYDAY AT BEDTIME Referrals / Follow Up: Anuj Ramirez DO [Med Staff - Active Staff] - Within 1 Month Michael Hanley MD [Med Staff - Active Staff] - Within 2 Weeks Care Physician,No Primary [Primary Care Provider] - [facility] Doctor,Out of [Non-Staff] - Disposition Disposition (needs filled in before D/C Order can be placed): Home, Self Care
--- NOTE | 2022-09-18 07:40 | PCM.DC.SUM ---
Providers Date of Admission: 09/14/22 Date of Discharge: 09/18/22 Primary Care Physician: Jennifer Primary Care Phys Consultations 09/14/22 17:27 Consult: Orthopedics Routine Consulting Provider: Michael Hanley Reason for Consult: L Hip Fracture EMERGENT Consult: No Notified: Yes Date Notified: 09/14/22 Time Notified: 14:53 Method of Notification: ED Physician Initiated 09/17/22 07:15 Consult: Gastroenterology Routine Consulting Provider: [facility] Reason for Consult: GIB EMERGENT Consult: No Notified: Yes Date Notified: 09/17/22 Time Notified: 07:16 Method of Notification: Verbal Reason For Visit: L HIP FRACTURE Diagnosis Discharge Diagnosis (1) GI bleed: Status: Acute Code(s): K92.2 - Gastrointestinal hemorrhage, unspecified Plan 67-year-old female was admitted after she fell off the vacuum and had left hip pain and deformity. Her left hip was internally rotated and flexed. Denies loss of consciousness, or numbness, tingling or paresthesia. Patient was admitted on [facility]. Left hip femoral neck fracture: Patient had left hip cemented hemiarthroplasty through anterior approach by Dr. Hanley on 09/15/2022. On pain control with Tylenol, muscle relaxant as needed, oxycodone. Patient was evaluated PT and OT and found that she can be discharged home with home PT. Orthopedic surgeon recommended Xarelto 10 mg daily for 30 days but is not covered with insurance therefore prescribed Eliquis 2.5 mg twice daily to be started from 09/25/2022. -Follow up with Dr. Hanley for postoperative care in 2 weeks Acute GI bleed: Patient was started on IV Protonix drip. GI was consulted. EGD showed oozing gastric ulcer, treated with heater probe. Patient is discharged on Protonix 40 mg twice daily for 2 months and then once daily to continue. Follow-up GI in [address] Wood, and his ANTOINETTE Ramos in [place], [place]. Acute on chronic anemia secondary to iron deficiency -Patient states she is chronically anemic due to her celiac's disease however she does not know her baseline hemoglobin -Hemoglobin on initial lab was 8.1 --> 7.0 yesterday and repeat hemoglobin this morning was 7.0 after 1 unit being given -Repeat 1 unit packed red blood cell again today Was given IV iron infusion 08/16/2022 -Oral iron started -Patient discharged on ferrous sulfate and vitamin C History of celiac's disease -No current issues -Gluten-free diet Recent dental surgery -Continue Amoxil -Recommend previously scheduled outpatient follow-up History of GERD -Hold home medication and start Protonix drip History of atrial fibrillation -Remote -Underwent cardiac ablation at least 10 years ago with no cardiac issues since that point time Twelve-lead EKG ordered shows normal sinus rhythm with nonspecific ST-T changes at 82 bpm Bipolar disorder -Continue home medications Insomnia -Patient is on Lunesta at home -Patient has brought in her home Lunesta as Ambien made her extremely drowsy Obesity -BMI 35.4 -Complicates treatment, prognosis, outcomes -Recommend weight loss DVT prophylaxis -SCDs CODE STATUS Full code Patient discharged on pantoprazole 40 mg twice daily. Prescriptions for pantoprazole, ferrous sulfate and ascorbic acid prescriptions were also given. Need Eliquis 2.5 twice daily to be started from 09/19/2022 as DVT prophylaxis after hip surgery for 30 days. Prescriptions given. Discharge medication reconciliation done. Discharge follow-up instructions completed. Discharge process discussed with the patient and all questions were answered to patient's satisfaction. Total time spent, exact 35 minutes on discharge meds reconciliation, examination, coordination of care with nurses and ancillary staff, review of imaging and blood test and discussion with the patient on follow-up instructions. Medications at Discharge Home Medications alprazolam 0.5 mg tablet 0.5 mg PO DAILY PRN Anxiety 09/14/22 bupropion HCl 150 mg 24 hr tablet, extended release 450 mg PO DAILY mood stabilizer 09/14/22 eszopiclone 3 mg tablet 3 mg PO QHS PRN Insomnia 09/14/22 olanzapine 10 mg tablet 10 mg PO QHS bipolar 09/14/22 sertraline 100 mg tablet 200 mg PO QHS bipolar 09/14/22 amoxicillin 500 mg capsule 500 mg PO TID Check with primary doctor 2 days #0 caps 09/18/22 apixaban 2.5 mg tablet (Eliquis) 2.5 mg PO BID 30 days #60 tabs 09/18/22 ascorbic acid (vitamin C) 500 mg tablet 500 mg PO BID #60 tabs 09/18/22 ferrous sulfate 325 mg (65 mg iron) tablet,delayed release 325 mg PO DAILY #30 tabs 09/18/22 oxycodone 5 mg tablet 2.5 mg PO Q4H PRN PRN Pain Score 4-10 3 days #10 tabs 09/18/22 pantoprazole 40 mg tablet,delayed release (Protonix) 40 mg PO BID #60 tabs 09/18/22 pantoprazole 40 mg tablet,delayed release (Protonix) 40 mg PO BID #60 tabs 09/18/22 polyethylene glycol 3350 17 gram oral powder packet 17 g PO DAILY #0 ea 09/18/22 sennosides 8.6 mg-docusate sodium 50 mg tablet (Stool Softener-Stimulant Laxative) 2 tab PO BID PRN PRN Constipation #0 tabs 09/18/22 tizanidine 2 mg tablet 4 mg PO Q8H PRN PRN Muscle Spasms/Musculoskeletal Pain 15 days #30 tabs 09/18/22 Physical Exam Narrative Seen and examined. No abdominal pain. Denies dysuria or urinary tract symptoms. Patient doing good on physical therapy during hospital course after surgery. Spontaneously voiding urine. Physical exam General: Alert, Oriented x3, Cooperative HEENT: Atraumatic, PERRLA, EOMI, Normocephalic Oral: No Gingival or Mucosal Lesions/ Ulcerations Neck: Supple, No JVD, Negative Carotid Bruits Lungs: Air entry diminished in bilateral lung bases. No crepitation/rhonchi Cardiovascular: Regular rate, Regular Rhythm, Normal S1, Normal S2, Abdomen: Bowel Sounds Present, Soft, Non Tender, Non-Distended : No renal angle tenderness. No suprapubic tenderness. Extremities: No edema, Capillary Refill Less than 3 Seconds Skin: Left hip anterior surgical dressing dry. No hematoma. Musculoskeletal: No superficial tenderness over surgical left hip region. No Tenderness to Palpation of other joints or Extremities Neurological: Cranial nerves II-XII grossly intact, DTR 2+/4 and Symmetrical, Neuro grossly intact Psych/Mental Status: Normal Affect, Appropriate. Weight / BMI Weight Weight: 205 lb 7.533 oz Body Mass Index (BMI) 35.2 ABG / Lab / Microbiology Data Result Diagrams: 09/18/22 05:55 09/18/22 05:55 Laboratory: Laboratory Results - last 24 hr 09/14/22 15:25: Crossmatch See Detail 09/18/22 05:55: WBC 9.4, RBC 3.30 L, Hgb 7.9 L, Hct 26.4 L, MCV 80.0 L D, MCH 23.9 L, MCHC 29.9 L, RDW Std Deviation 53.0 H, RDW Coeff of Nurys 19.0 H, Plt Count 198, MPV 9.8, Immature Gran % (Auto) 0.700, Neut % (Auto) 70.6 H, Lymph % (Auto) 17.9 L, [place] % (Auto) 6.8, Eos % (Auto) 3.6, Baso % (Auto) 0.4, Absolute Neuts (auto) 6.7, Absolute Lymphs (auto) 1.69, Nucleated RBC % 0 09/18/22 05:55: Sodium 141, Potassium 3.9, Chloride 111 H, Carbon Dioxide 24.0, Anion Gap 6, BUN 22 H, Creatinine 0.91, Estim Creat Clear Calc 52.51, Est GFR (MDRD) Af Amer 80, Est GFR (MDRD) Non-Af 66, BUN/Creatinine Ratio 24.2 H, Glucose 98, Calcium 8.2 L Microbiology: Microbiology 09/16/22 05:56 Stool Stool Occult Blood (ALIZA) - Final Occult Blood Positive Meaningful Use Info Meaningful Use Diagnoses (Choose all that apply): None applicable Discharge Plan Admission Admit Date/Time: 09/14/22 14:49 Primary Reason for Your Visit: Left hip fracture and GI bleed due to gastric ulcer Attending Provider: Mikie Marcos Primary Care Provider: Care Physician,No Primary Consulting Providers: Michael Hanley ; Nidhi Camacho Discharge Orders/Prescriptions Prescriptions: New tizanidine 2 mg Tablet 4 mg PO Q8H PRN PRN (Reason: Muscle Spasms/Musculoskeletal Pain) 15 Days Qty: 30 0RF oxycodone 5 mg Tablet 2.5 mg PO Q4H PRN PRN (Reason: Pain Score 4-10) 3 Days Qty: 10 0RF Rx Instructions: 2.5 mg for 4-6/10 and 5 mg for 7-10/10 in intensity polyethylene glycol 3350 17 gram Powder In Packet 17 g PO DAILY Qty: 0 0RF sennosides-docusate sodium [Stool Softener-Stimulant Laxat] 8.6-50 mg Tablet 2 tab PO BID PRN PRN (Reason: Constipation) Qty: 0 0RF ferrous sulfate 325 mg (65 mg iron) tablet,delayed release (DR/EC) 325 mg PO DAILY Qty: 30 2RF ascorbic acid (vitamin C) 500 mg tablet 500 mg PO BID Qty: 60 2RF pantoprazole [Protonix] 40 mg tablet,delayed release (DR/EC) 40 mg PO BID Qty: 60 1RF Rx Instructions: advised TWICE DAILY FOR 2 WEEKS THEN ONCE DAILY Eliquis 2.5 mg tablet 2.5 mg PO BID 30 Days Qty: 60 0RF Rx Instructions: Start from 09/19/2022 Hold if hemoglobin less than 7.0. pantoprazole [Protonix] 40 mg tablet,delayed release (DR/EC) 40 mg PO BID Qty: 60 2RF Rx Instructions: 40 mg twice daily for 2 months then once daily Continued sertraline 100 mg tablet 200 mg PO QHS Label Comments: TAKE 2 TABLETS BY MOUTH DAILY olanzapine 10 mg tablet 10 mg PO QHS Label Comments: TAKE 1 TABLET BY MOUTH EVERYDAY AT BEDTIME alprazolam 0.5 mg tablet 0.5 mg PO DAILY PRN (Reason: Anxiety) Label Comments: TAKE 1 TABLET BY MOUTH EVERY DAY NEEDED bupropion HCl 150 mg tablet extended release 24 hr 450 mg PO DAILY Label Comments: TAKE 1 TABLET BY MOUTH EVERY DAY IN THE MORNING Rx Instructions: rechecked Bupropion dose with pt's pharmacy - pt takes mg daily eszopiclone 3 mg tablet 3 mg PO QHS PRN (Reason: Insomnia) Label Comments: TAKE 1 TABLET BY MOUTH AT BEDTIME NEEDED amoxicillin 500 mg capsule 500 mg PO TID 2 Days Qty: 0 0RF Rx Instructions: complete antibiotic course as prescribed as by dentist Discontinued meloxicam 15 mg tablet 15 mg PO QHS Label Comments: TAKE 1 TABLET BY MOUTH EVERY DAY famotidine 20 mg tablet 20 mg PO DAILY Label Comments: TAKE 1 TABLET BY MOUTH EVERYDAY AT BEDTIME Referrals / Follow Up: Anuj Ramirez DO [Med Staff - Active Staff] - Within 1 Month Michael Hanley MD [Med Staff - Active Staff] - Within 2 Weeks Care Physician,No Primary [Primary Care Provider] - [facility] Doctor,Out of [Non-Staff] - Disposition Disposition (needs filled in before D/C Order can be placed): Home, Self Care Charges/Coding Visit Charges Inpatient E&M: 52819 Disch Hosp >30min
--- NOTE | 2022-09-18 08:21 | PCM.PN.ORT ---
Subjective Subjective Post op left hip gege for NOF. Doing well. Had a GI scope, no complaints of hematemesis or blood per rectum. Getting up with the PTs Objective Data Objective Data Vital Signs: Vital Signs Temp Pulse Resp BP Pulse Ox O2 Del Method O2 Flow Rate 97.8 F 82 16 153/58 H 98 Room Air 2 09/18/22 03:51 09/18/22 03:51 09/18/22 03:51 09/18/22 03:51 09/18/22 03:51 09/18/22 03:51 09/17/22 22:13 Oxygen Flow Rate (L/min) 2 Oxygen Delivery Method Room Air Weight: 205 lb 7.533 oz Body Mass Index (BMI) 35.2 Intake & Output: Intake and Output for Last 24 Hours 09/16/22 09/17/22 09/18/22 23:59 23:59 23:59 Intake Total 600 / 600 1006.25 / 1006.25 300 / 300 Output Total 600 / 600 Balance 0 / 0 1006.25 / 1006.25 300 / 300 Lab / Micro Data Result Diagrams: 09/18/22 05:55 09/18/22 05:55 Labs: Laboratory Results - last 24 hr 09/14/22 15:25: Crossmatch See Detail 09/18/22 05:55: WBC 9.4, RBC 3.30 L, Hgb 7.9 L, Hct 26.4 L, MCV 80.0 L D, MCH 23.9 L, MCHC 29.9 L, RDW Std Deviation 53.0 H, RDW Coeff of Nurys 19.0 H, Plt Count 198, MPV 9.8, Immature Gran % (Auto) 0.700, Neut % (Auto) 70.6 H, Lymph % (Auto) 17.9 L, [place] % (Auto) 6.8, Eos % (Auto) 3.6, Baso % (Auto) 0.4, Absolute Neuts (auto) 6.7, Absolute Lymphs (auto) 1.69, Nucleated RBC % 0 09/18/22 05:55: Sodium 141, Potassium 3.9, Chloride 111 H, Carbon Dioxide 24.0, Anion Gap 6, BUN 22 H, Creatinine 0.91, Estim Creat Clear Calc 52.51, Est GFR (MDRD) Af Amer 80, Est GFR (MDRD) Non-Af 66, BUN/Creatinine Ratio 24.2 H, Glucose 98, Calcium 8.2 L Micro: Microbiology 09/16/22 05:56 Stool Stool Occult Blood (ALIZA) - Final Occult Blood Positive Rhythm Strip Rhythm Strip: Sinus Rhythm (88) Rate: 75 Ectopy: None Physical Exam Narrative drsg dry, intact, thigh soft, no pain with log roll, foot nvi, leg lengths equal. Assessment & Plan Assessment/Plan (1) Fracture of femoral neck, left: PLAN: CCM. WBAT.
[2022-09-18] MEDS: Ferrous Sulfate 325 MG Tablet PO (10:03)
[2022-09-18] MEDS: Sertraline 100 MG Tablet PO (10:03)
[2022-09-18] MEDS: buPROPion (XL) 150 MG TABLET.XL 450 MG PO (10:03)
[2022-09-18 10:06] VITALS: BP 120/47; PULSE 78; RESP 18; TEMP 36.6; O2SAT 94
--- NOTE | 2022-09-18 10:07 | CASEMGMT ---
Addendum entered by Vianey Mota 09/18/22 10:10: Pt provided with [employer] savings card and explanation given as well. Original Note: RN CM into pt room, provided pt with rx for outpt therapy. Pt states she will set this up on her own. Pt is aware that a FWW will be delivered to her room. Referral sent to [facility] via [facility] at this time. Pt states her is putting grab bars up at home and she will be staying on the first level. Pt denies further homegoing needs at this time.
--- NOTE | 2022-09-18 11:07 | CASEMGMT ---
Social Work Per glass furnace operator, pt has a living will and HCPOA naming her Rio Chu. Pt aware documents are not on file at [facility] and she cannot bring in at this time. RAJINDER Fung
--- NOTE | 2022-09-18 12:00 | EX.PCM.PN.GI ---
Subjective Subjective Patient underwent egd yesterday and was discovered to have a bleeding gastric ulcer that was treated endoscopically. Objective Data Objective Data Vital Signs: Vital Signs Temp Pulse Resp BP Pulse Ox O2 Del Method O2 Flow Rate 98.2 F 76 18 121/53 H 97 Room Air 2 09/18/22 14:17 09/18/22 14:17 09/18/22 14:17 09/18/22 14:17 09/18/22 14:17 09/18/22 14:17 09/17/22 22:13 Oxygen Flow Rate (L/min) 2 Oxygen Delivery Method Room Air Weight: 205 lb 7.533 oz Body Mass Index (BMI) 35.2 Intake & Output: Intake and Output for Last 24 Hours 09/16/22 09/17/22 09/18/22 23:59 23:59 23:59 Intake Total 600 / 600 1006.25 / 1006.25 700 / 700 Output Total 600 / 600 Balance 0 / 0 1006.25 / 1006.25 700 / 700 Lab / Micro Data Result Diagrams: 09/18/22 05:55 09/18/22 05:55 Labs: Laboratory Results - last 24 hr 09/18/22 05:55: WBC 9.4, RBC 3.30 L, Hgb 7.9 L, Hct 26.4 L, MCV 80.0 L D, MCH 23.9 L, MCHC 29.9 L, RDW Std Deviation 53.0 H, RDW Coeff of Nurys 19.0 H, Plt Count 198, MPV 9.8, Immature Gran % (Auto) 0.700, Neut % (Auto) 70.6 H, Lymph % (Auto) 17.9 L, [place] % (Auto) 6.8, Eos % (Auto) 3.6, Baso % (Auto) 0.4, Absolute Neuts (auto) 6.7, Absolute Lymphs (auto) 1.69, Nucleated RBC % 0 09/18/22 05:55: Sodium 141, Potassium 3.9, Chloride 111 H, Carbon Dioxide 24.0, Anion Gap 6, BUN 22 H, Creatinine 0.91, Estim Creat Clear Calc 52.51, Est GFR (MDRD) Af Amer 80, Est GFR (MDRD) Non-Af 66, BUN/Creatinine Ratio 24.2 H, Glucose 98, Calcium 8.2 L Micro: Microbiology 09/16/22 05:56 Stool Stool Occult Blood (ALIZA) - Final Occult Blood Positive Rhythm Strip Rhythm Strip: Sinus Rhythm (88) Rate: 75 Ectopy: None Physical Exam Const alert, oriented x3, no apparent distress and well nourished Constitutional Narrative: Obese, upper middle-aged, white female, lying in bed, appears comfortable at this time, nontoxic General Appearance: cooperative HEENT normocephalic, head/scalp atraumatic, hearing grossly normal bilaterally and moist oral mucous membranes HEENT Narrative: Previous surgical intervention on lower jaw noted, Mallampati 2-3, no thrush Resp normal respiratory effort, no retractions, no use of accessory muscles and clear to auscultation bilaterally Auscultation: Negative for rales, rhonchi or wheezes Cardio regular rate, regular rhythm, S1 normal heart sound, S2 normal heart sound, no murmurs, no rub, no gallops and no clicks GI normal to inspection, nondistended, normoactive bowel sounds, soft to palpation and non-tender Extremity no clubbing, cyanosis or edema Extremity Narrative: Left hip with very minimal swelling and resolving ecchymosis at surgical site, dressing is peeling off a bit with no drainage noted-discussed with nursing Neuro oriented x3 and no focal motor deficits Speech: speech normal Psych affect normal Psych Narrative: Pleasant Assessment & Plan Assessment/Plan (1) Fracture of femoral neck, left: (2) GI bleed: (3) Acute on chronic anemia: (4) Iron deficiency: PLAN: Plan GI bleed -Suspect upper with trend on serum creatinine and BUN -Start Protonix drip -N.p.o. Acute on chronic anemia secondary to iron deficiency -Patient states she is chronically anemic due to her celiac's disease however she does not know her baseline hemoglobin -Hemoglobin on initial lab was 8.1 --> 7.0 yesterday and repeat hemoglobin this morning was 7.0 after 1 unit being given -Repeat 1 unit packed red blood cell again today and hgb is back up to 7.9 -Gastric ulcer treated -give 1 dose of IV iron given on 09/15/2022 -Oral iron started -Hemoccult pending -Start oral iron twice daily today -We will discharge patient with oral iron -Repeat CBC in a.m. History of celiac's disease -No current issues -Gluten-free diet Charges/Coding Visit Charges Inpatient E&M: 63785 Subs Hosp L3
[2022-09-18 14:17] VITALS: BP 121/53; PULSE 76; RESP 18; TEMP 36.8; O2SAT 97
== END 2022-09-18 16:52 | disposition home or self-care (01) | DRG 521 ==
LOC: ED 15:29 → MS3 15:31
PROVIDERS: Internal Medicine Gastroenterology; Orthopaedic Surgery Sports Medicine; Admitting Provider Internal Medicine; Emergency Provider Emergency Medicine; Visit Provider Internal Medicine
PROC: 0SRS0J9 Replacement of Left Hip Joint, Femoral Surface with Synthetic Substitute, Cemented, Open Approach (ICD-10-PCS; CPT 27125; principal; 2022-09-15 08:00)
PROC: 0DJ08ZZ Inspection of Upper Intestinal Tract, Via Natural or Artificial Opening Endoscopic (ICD-10-PCS; CPT 43235; principal; 2022-09-17 11:25)
DX: S72.002A Fracture of unspecified part of neck of left femur, initial encounter for closed fracture (principal); K25.4 Chronic or unspecified gastric ulcer with hemorrhage; D62 Acute posthemorrhagic anemia; F31.9 Bipolar disorder, unspecified; I48.91 Unspecified atrial fibrillation; K21.9 Gastro-esophageal reflux disease without esophagitis; K31.7 Polyp of stomach and duodenum; D50.8 Other iron deficiency anemias; W10.8XXA Fall (on) (from) other stairs and steps, initial encounter; K90.0 Celiac disease; G47.00 Insomnia, unspecified; E66.9 Obesity, unspecified; Z68.35 Body mass index [BMI] 35.0-35.9, adult; Z79.01 Long term (current) use of anticoagulants; Z79.899 Other long term (current) drug therapy
CPT/HCPCS: 36415; 71045; 73502; 76000; 80048; 80053; 82274; 82728; 83540; 83550; 83735; 84100; 84443; 85025; 85610; 85730; 86850; 86900; 86901; 86920; 88305; 88307; 88311; 93005; 94667; 94668; 97110; 97162; 97166; 97535; 99252; 99285; C1776; J7030; J7040; J7050; J7120; P9016; A4216; G0463; J2405; J2916; J3490